=== PATIENT | male | born 1980 | race Caucasian/White ===

== ENCOUNTER 2023-04-09 09:10 | Outpatient (REF) | payer MEDICARE, MEDICAID, SELFPAY ==
[2023-04-09 11:33] LABS: MANUAL DIFF FLAG NO
[2023-04-09 11:36] LABS: Basophils Percent Auto 0.6 % (0-2); Eosinophils Absolute Auto 0.3 X10*3/uL (0.0-0.4); Eosinophils Percent Auto 4.5 % (0-4); Hematocrit 43.4 % (42.0-52.0); Hemoglobin 14.6 g/dl (14.0-18.0); Imm Gran Abs Auto 0.01 X10*3/uL (0.00-0.03); Imm Gran Pct Auto 0.1 % (0.0-0.4); Lymphocytes Absolute Auto 1.8 X10*3/uL (1.2-4.9); Mean Corpuscular HGB Conc 33.6 g/dl (31.0-36.0); Mean Corpuscular Hemoglobin 28.9 pg (27.0-33.0); Mean Corpuscular Volume 85.9 fL (80.0-98.0); Mean Platelet Volume 10.3 fL (9.4-12.4); Monocytes Absolute Auto 0.6 X10*3/uL (0.1-1.2); Monocytes Percent Auto 8.4 % (2-11); Neutrophils Absolute Auto 4.2 x10*3/uL (2.0-8.3); Neutrophils Percent Auto 60.4 % (45-73); Platelet Count 282 X10*3/uL (160-400); Red Blood Count 5.05 X10*6/uL (4.60-5.80); Red Cell Distribution Width 12.8 % (11.0-16.0); White Blood Count 6.9 X10*3/uL (4.8-10.8)
[2023-04-09 13:02] LABS: Alanine Aminotransferase 28 U/L (0-40); Albumin Level 4.6 g/dL (3.5-5.0); Alkaline Phosphatase 70 U/L (39-117); Anion Gap 12 (12-20); Aspartate Amino Transferase 22 U/L (5-37); Blood Urea Nitrogen 18 mg/dL (9-16); Calcium 9.9 mg/dL (8.4-10.2); Carbon Dioxide 27 mmol/L (22-29); Chloride 104 mmol/L (96-108); Cholesterol 239 mg/dL (<200); Estimated Glomerular Filt Rate 55; Glucose Random 110 mg/dL (60-115); HDL Cholesterol 58 mg/dL (>40); LDL Cholesterol Calculated 152 mg/dL (<100); Potassium 4.7 mmol/L (3.3-5.1); Sodium 138 mmol/L (135-145); Total Protein 8.2 g/dL (6.5-8.0); Triglycerides 147 mg/dL (<150)
== END 2023-04-09 09:11 | disposition home or self-care (01) ==
LOC: HO.HHCL 09:10
PROVIDERS: Visit Provider Internal Medicine Geriatric Medicine
DX: Z00.00 Encounter for general adult medical examination without abnormal findings (principal); N52.9 Male erectile dysfunction, unspecified; R79.89 Other specified abnormal findings of blood chemistry; F41.9 Anxiety disorder, unspecified
CPT/HCPCS: 36415; 80053; 80061; 85025

== ENCOUNTER 2023-10-23 10:25 | Outpatient (REF) | payer MEDICARE, MEDICAID, SELFPAY ==
[2023-10-23 12:29] LABS: Alanine Aminotransferase 37 U/L (0-40); Albumin Level 4.4 g/dL (3.5-5.0); Alkaline Phosphatase 52 U/L (39-117); Anion Gap 12 (12-20); Aspartate Amino Transferase 23 U/L (5-37); Bilirubin Total 0.9 mg/dL (0.0-1.0); Blood Urea Nitrogen 14 mg/dL (9-16); Calcium 9.7 mg/dL (8.4-10.2); Carbon Dioxide 26 mmol/L (22-29); Chloride 106 mmol/L (96-108); Cholesterol 172 mg/dL (<200); Estimated Glomerular Filt Rate > 60; Glucose Random 111 mg/dL (60-115); HDL Cholesterol 55 mg/dL (>40); LDL Cholesterol Calculated 98 mg/dL (<100); Potassium 4.5 mmol/L (3.3-5.1); Sodium 139 mmol/L (135-145); Total Protein 7.4 g/dL (6.5-8.0); Triglycerides 96 mg/dL (<150)
== END 2023-10-23 10:26 | disposition home or self-care (01) ==
LOC: HO.HHCL 10:25
PROVIDERS: Visit Provider Internal Medicine Geriatric Medicine
DX: I10 Essential (primary) hypertension (principal); Z79.899 Other long term (current) drug therapy
CPT/HCPCS: 36415; 80053; 80061

== ENCOUNTER 2024-03-12 10:30 | Outpatient (REF) | payer MEDICARE, MEDICAID, SELFPAY ==
--- NOTE | ~2024-03-12 | XR_ITS ---
EXAMINATION: XR CHEST CLINICAL INFORMATION: WEIGHT LOSS COMPARISON: None available. TECHNIQUE: 2 views of the chest were obtained. FINDINGS: The cardiac, hilar, and mediastinal contours are normal. The lungs are clear bilaterally. There is no pneumothorax or pleural effusion. There is no focal osseous or soft tissue abnormality. XR/XR chest 2V IMPRESSION: Normal chest. Electronically signed by: Ricardo Reynolds MD 03/12/2024 11:21 AM [facility]
[2024-03-12 11:38] LABS: MANUAL DIFF FLAG NO
[2024-03-12 11:45] LABS: Basophils Percent Auto 0.4 % (0-2); Eosinophils Absolute Auto 0.2 X10*3/uL (0.0-0.4); Eosinophils Percent Auto 3.2 % (0-4); Hematocrit 38.7 % (42.0-52.0); Hemoglobin 12.7 g/dl (14.0-18.0); Imm Gran Abs Auto 0.01 X10*3/uL (0.00-0.03); Imm Gran Pct Auto 0.2 % (0.0-0.4); Lymphocytes Absolute Auto 1.5 X10*3/uL (1.2-4.9); Mean Corpuscular HGB Conc 32.8 g/dl (31.0-36.0); Mean Corpuscular Hemoglobin 27.2 pg (27.0-33.0); Mean Corpuscular Volume 82.9 fL (80.0-98.0); Monocytes Absolute Auto 0.5 X10*3/uL (0.1-1.2); Neutrophils Absolute Auto 2.4 x10*3/uL (2.0-8.3); Neutrophils Percent Auto 52.2 % (45-73); Platelet Count 272 X10*3/uL (160-400); Red Blood Count 4.67 X10*6/uL (4.60-5.80); Red Cell Distribution Width 11.7 % (11.0-16.0); White Blood Count 4.6 X10*3/uL (4.8-10.8)
[2024-03-12 12:11] LABS: Alanine Aminotransferase 70 U/L (0-40); Albumin Level 4.2 g/dL (3.5-5.0); Alkaline Phosphatase 83 U/L (39-117); Anion Gap 10 (12-20); Aspartate Amino Transferase 39 U/L (5-37); Bilirubin Direct 0.3 mg/dL (0.0-0.5); Bilirubin Total 0.8 mg/dL (0.0-1.0); Blood Urea Nitrogen 11 mg/dL (9-16); Calcium 9.9 mg/dL (8.4-10.2); Carbon Dioxide 25 mmol/L (22-29); Chloride 105 mmol/L (96-108); Estimated Glomerular Filt Rate > 60; Glucose Random 109 mg/dL (60-115); Potassium 4.2 mmol/L (3.3-5.1); Sodium 136 mmol/L (135-145); Total Protein 7.7 g/dL (6.5-8.0)
[2024-03-12 12:29] LABS: TSH reflex Free T4 < 0.01 uIU/mL (0.32-4.0)
--- OUTSIDE RECORDS SUMMARY | 2024-03-12 12:36 | XMS_ITS | Clinical Summary ---
Author Organization [employer] Address [address] [place] [address] 7[address] [place] [address] Care Team Providers Care Executive Vp Name Role Phone Name, Ko CRAWFORD Primary Care Provider [phone] Allergies No known active allergies Medications fluticasone (Flonase) 50 MCG/ACT nasal spray SPRAY 2 SPRAYS INTO EACH NOSTRIL IN THE MORNING SHAKE GENTLY/PRIME BEFORE 1ST USE&CLEAN TIP/REPLACE CAP 48 mL 4 Active losartan (Cozaar) 50 MG tablet Take 1 tablet (50 mg) by mouth Once per day. 90 tablet 3 4 10/18/19 25 Active amLODIPine (Norvasc) 5 MG tablet Take 1 tablet (5 mg) by mouth Once per day. 90 tablet 3 4 10/18/19 25 Active rosuvastatin (Crestor) 20 MG tablet Take 1 tablet (20 mg) by mouth Once per day. 30 tablet 11 4 10/18/19 25 Active cetirizine (ZyrTEC) 10 MG tablet Take 1 tablet (10 mg) by mouth Once per day. 30 tablet 2 4 04/23/19 25 Active Viagra 100 MG tabletIndication s:Erectile dysfunction, unspecified erectile dysfunction type TAKE 1 TABLET 1 HOUR BEFORE SEXUAL RELATIONS ONCE DAILY NEEDED. 10 tablet 4 Active Active Problems Problem Noted Date Diagnosed Date Unexplained weight loss 03/12/2024 Assessment & Plan (03/12/2024 12:27 PM EST): Pt has had ~6lbs of weight loss since 10/2023. 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 curative right orchiectomy with Dr Kane brady in 2011 Hypercholesterolemia 04/29/2015 Herpes simplex 04/15/2009 Allergic rhinitis 06/21/2007 Migraine with aura 12/06/2006 Overview (03/27/2022): IMO update Encounters Date Type Department Care Team Description 03/12/2024 9:30 AM EST Office Visit [address] [address] Lynn Capellan CNP Unexplained weight loss (Primary Dx) 02/15/[address] [address] Otilia Briscoe [place] feb recalls 01/31/[address] [address] Ko Eagle MD 01/23/2024 10:45 AM EST Office Visit [address] [address] Ko Eagle MD Essential hypertension (Primary Dx); Hypercholesterolemia; Malignant neoplasm of testicle, unspecified laterality, unspecified whether descended or undescended (CMS/HCC); Erectile dysfunction, unspecified erectile dysfunction type; Encounter for immunization 01/21/[address] [address] Cecily Gómez MA Chart Prep 01/13/[address] [address] Ko Eagle MD Other hyperlipidemia from Last 3 Months Immunizations Name Administration Dates Next Due Influenza injectable quadriv alent IIV4 with preservative 03/05/2019,12/06/2016,11/03/2015 Influenza injectable quadriv alent preservative free 03/30/2023,12/12/2021,12/21/2020,2018 Influenza, IIV3, injectable 01/31/2013, 1,01/13/2009 Influenza, seasonal, injecta ble, preservative free 01/23/2024 TD (adult), 2 Lf tetanus tox oid, preservative free, adsorbed 10/19/2017 Tdap 06/13/2006 Social History Tobacco Use Types Packs/Day Years Used Date Smoking Tobacco: Never Smokeless Tobacco: Never Tobacco Cessation:Counseling Given: Not Answered Alcohol Use Standard Drinks/Week Comments Yes 0 (1 standard drink = 0.6 oz pur e alcohol) social Depression Answer Date Recorded Patient Health Questionnaire-9 Score 0 03/30/2023 Patient Health Questionnaire-9 Score 0 03/30/2023 Last PHQ-9: Questionnaire Data Not on file 0 03/30/2023 Housing Stability Answer Date Recorded What is your housing situation today? I have marj bianchi 03/22/[address] you li ve. Do you have problems with any of the following? None of the above 03/22/2023 Food Insecurity Answer Date Recorded Within the past 12 months, y ou worried that your food would run out before you got money to buy more: Never True 03/22/2023 Within the past 12 months,th e food you bought just didn't last and you didn't have enough money to get more: Never True 09/2023 Transportation Answer Date Recorded In the past 12 months, has l ack of transportation kept you from medical appts, meetings, work or from getting things needed for daily living? No 03/22/2023 Utilities Answer Date Recorded In the past 12 months, has t he electric, gas, oil or water company threatened to shut off services in your home? No 03/22/2023 Depression Answer Date Recorded Patient Health Questionnaire-2 Score 0 03/30/2023 Sex and Gender Information Value Date Recorded Sex Assigned at Male 12/12/2021 10:15 AM EDT Legal Sex Male 10:15 AM EDT Gender Identity Male 12/12/2021 10:15 AM EDT Sexual Orientation Straight 12/12/2021 10 :15 AM EDT Last Filed Vital Signs Vital Sign Reading Time Taken Comments Blood Pressure 138/87 03/12/2024 10:26 AM EST Pulse 96 03/12/2024 9:29 AM EST Temperature 36.6 ??C (97.9 ??F) 03/12/2024 9:29 AM ES T Respiratory Rate 20 03/12/2024 9:29 AM EST Oxygen Saturation 95% 03/12/2024 9:29 AM EST Inhaled Oxygen Concentration - - Weight 84.4 kg (186 lb) 03/12/2024 9:29 AM EST Height 175.3 cm (5' 9 ) 03/12/2024 9:29 AM EST Body Mass Index 27.47 03/12/2024 9:29 AM EST Plan of Treatment Upcoming Encounters Date Type Department Care Team (Late st Contact Info) Description 04/28/2024 10:15 AM EDT Office Visit [facility] MEDICINE [address] [place] [address] Name, MD Ko [address] [place] [address] Health Maintenance Due Date Last Done Comments CT Colonography 1978 Colonoscopy 1978 Colorectal Cancer Screening 1978 FIT DNA/Cologuard 1978 FIT 1978 FOBT 1978 HIV Screening 1978 Sigmoidoscopy 1978 Family Planning (PISQ) 1993 Hepatitis C Screening 01/10/1996 Hepatitis B Vaccines (1 of 3 - 19+ 3-dose series) 1997 COVID-19 Vaccine ( season) 2023 03/23/2021, 10/06/2020, 09/15/2020 SDOH Screening 03/22/2024 03/22/2023 Depression Screening 03/30/2024 03/30/2023, 03/30/19 24 Alcohol/Substance Use Screening 01/22/2025 01/23/2024 Tobacco Screening 03/12/2025 03/12/2024 DTaP/Tdap/Td Vaccines (3 - Td or Tdap) 10/20/2027 10/19/2017, 06/13/2006 Zoster Vaccines (1 of 2) 01/10/2028 Lipid Panel 10/22/2028 10/23/2023, 03/16, 03/28/2022, Additional history exists RSV Patients and Patients Aged 60 years or older (1 - 1-dose 75+ series) 2053 Influenza Vaccine Completed 01/23/2024, , 12/12/2021, Additional history exists HIB Vaccines Aged Out No longer eligi ble based on patient's age to complete this topic HPV Vaccines Aged Out No longer eligi ble based on patient's age to complete this topic Hepatitis A Vaccines Aged Out No long er eligible based on patient's age to complete this topic IPV Vaccines Aged Out No longer eligi ble based on patient's age to complete this topic Meningococcal Vaccine Aged Out No sydni vivien eligible based on patient's age to complete this topic Pneumococcal Vaccine: Pediatrics (0 to 5 Years) and At-Risk Patients (6 to 49) Years) Aged Out No longer eligible based on patient's age to complete this topic RSV under 20 months Aged Out No longe r eligible based on patient's age to complete this topic Rotavirus Vaccines Aged Out No longer eligible based on patient's age to complete this topic Procedures Procedure Name Priority Date/Time Associated Diagnosis Comments XR CHEST 2 VIEWS Routine 03/12/2024 10:5 4 AM EST Unexplained weight loss TSH W/REFLEX TO FT4 Routine 03/12/2024 1 0:33 AM EST Unexplained weight loss HEPATIC FUNCTION PANEL Routine 10:33 AM EST Unexplained weight loss COMPREHENSIVE METABOLIC PANEL Routine 03/12/2024 10:33 AM EST Unexplained weight loss CBC WITH AUTO DIFFERENTIAL Routine 03/12/2024 10:33 AM EST Unexplained weight loss LIPID PANEL, STANDARD Routine 10/23/2023 10:34 AM EDT On statin therapy from Last 3 Months or Most Recently Relevant to Health Maintenance Results * XR Chest 2 Views (03/12/2024 10:54 AM EST) Anatomical Region Laterality Modality Chest Radiographic Sakshi ging 03/12/2024 10:5 4 AM EST Narrative 03/12/2024 11:23 AM EST ? [facility] ?[address] ?[place] [address] ?XRay Report ? Signed ? Patient: Esteras,Beniot A ?MR#: [id number] ?? [id number] ? : 1980 ?Acct:[id number] ? Age/Sex: 44 / M ?ADM Date: 03/12/24 ? Loc: HO.HHCL ? Attending Dr: Lynn Capellan CARD BRUSHER ? Ordering Physician: Lynn Capellan ?? Date of Service: 03/12/24 ?? Procedure(s): XR chest 2V ?? Accession Number(s): [id number] ? cc: Lynn Capellan ? EXAMINATION: ?? XR CHEST ? CLINICAL INFORMATION: ?? WEIGHT LOSS ? COMPARISON: ?? None available. ? TECHNIQUE: ?? 2 views of the chest were obtained. ? FINDINGS: ?? The cardiac, hilar, and mediastinal contours are normal. ? The lungs are clear bilaterally. There is no pneumothorax or pleural ?? effusion. ? There is no focal osseous or soft tissue abnormality. ? XR/XR chest 2V ?? IMPRESSION: ?? Normal chest. ? Electronically signed by: ??Ricardo Reynolds MD ??03/12/2024 11:21 AM EST RP ? Dictated By: ?Ricardo Reynolds MD ? Signed By: ?<Electronically signed by Ricardo Reynolds MD in OV> ?03/12/24 1121 ? DD/ 1054 ? TD/TT: 03/12/24 1102 ? Glue Bone Crusher: ? Procedure Note Ab Amador - 03/12/[address] [address] XRay Report Signed Patient: Benito Reveles AMR#: [id number] : 1980Acct:[id number] Age/Sex: 44 / MADM Date: 03/12/24 Loc: HO.HHCL Attending Dr: Lynn Capellan CARD BRUSHER Ordering Physician: Lynn Capellan Date of Service: 03/12/24 Procedure(s): XR chest 2V Accession Number(s): [id number] cc: Lynn Capellan EXAMINATION: XR CHEST CLINICAL INFORMATION: WEIGHT LOSS COMPARISON: None available. TECHNIQUE: 2 views of the chest were obtained. FINDINGS: The cardiac, hilar, and mediastinal contours are normal. The lungs are clear bilaterally. There is no pneumothorax or pleural effusion. There is no focal osseous or soft tissue abnormality. XR/XR chest 2V IMPRESSION: Normal chest. Electronically signed by: Ricardo Reynolds MD 03/12/2024 11:21 AM EST Dictated By: Ricardo Reynolds MD Signed By: <Electronically signed by Ricardo Reynolds MD in OV> 03/12/24 1121 DD/ 1054 TD/TT: 03/12/24 1102 Glue Bone Crusher: [facility] HOCKEY PLAYER IMG XR PROCEDURES Edited Result - Final * (ABNORMAL) TSH W/Reflex to FT4 (03/12/2024 10:33 AM EST) Pathologist [facility] TSH reflex Free T4 <0.01(L) 0.32 - 4.0 uIU/mL [facility] Blood Venous blood specimen / Unknown 03/12/2024 10:33 AM EST 03/12/2024 11:35 AM EST [facility] LAB BLOOD ORDERABLES Saadia l Result [facility] [address] [place] [phone] [phone] * (ABNORMAL) CBC auto differential (03/12/2024 10:33 AM EST) White Blood Count 4.6(L) 4.8 - 10.8 X10*3/uL [facility] Red Blood Count 4.67 4.60 - 5.80 X10*6/uL [facility] Hemoglobin 12.7(L) 14.0 - 18.0 g/dl [facility] Hematocrit 38.7(L) 42.0 - 52.0 % [facility] Mean Corpuscular Volume 82.9 80.0 - 98.0 fL [facility] Mean Corpuscular Hemoglobin 27.2 27.0 - 33.0 pg [facility] Mean Corpuscular HGB Conc 32.8 31.0 - 36.0 g/dl [facility] Red Cell Distribution Width 11.7 11.0 - 16.0 % [facility] Platelet Count 272 160 - 400 X10*3/uL [facility] Mean Platelet Volume 10.0 9.4 - 12.4 fL [facility] Neutrophils Percent Auto 52.2 45 - 73 % [facility] Imm Gran Pct Auto 0.2 0.0 - 0.4 % [facility] Lymphocytes Percent Auto 33.0 20 - 40 % [facility] Monocytes Percent Auto 11.0 2 - 11 % [facility] Eosinophils Percent Auto 3.2 0 - 4 % [facility] Basophils Percent Auto 0.4 0 - 2 % [facility] NRBC Pct Auto 0.0 0.0 - 0.2 /100WBC [facility] Neutrophils Absolute Auto 2.4 2.0 - 8.3 x10*3/uL [facility] Imm Gran Abs Auto 0.01 0.00 - 0.03 X10*3/uL [facility] Lymphocytes Absolute Auto 1.5 1.2 - 4.9 X10*3/uL [facility] Monocytes Absolute Auto 0.5 0.1 - 1.2 X10*3/uL [facility] Eosinophils Absolute Auto 0.2 0.0 - 0.4 X10*3/uL [facility] Basophils Absolute Auto 0.0 0.0 - 0.2 X10*3/uL [facility] NRBC Abs Auto 0.000 0.0 - 0.012 X10*3/uL [facility] Blood Venous blood specimen / Unknown 03/12/2024 10:33 AM EST 03/12/2024 11:35 AM EST [facility] LAB BLOOD ORDERABLES Saadia l Result Performing Organization Address City/[facility]/ZIP Co de Phone Number [facility] [address] [place] [phone] * Hepatic Function Panel (03/12/2024 10:33 AM EST) Bilirubin, Direct 0.3 0.0 - 0.5 mg/dL [facility] Blood Venous blood specimen / Unknown 03/12/2024 10:33 AM EST 03/12/2024 11:35 AM EST [facility] LAB BLOOD ORDERABLES Saadia l Result Performing Organization Address [facility] Co de Phone Number [facility] [address] [place] [phone] * (ABNORMAL) Comprehensive Metabolic Panel (03/12/2024 10:33 AM EST) Sodium 136 135 - 145 mmol/L [facility] Potassium 4.2 3.3 - 5.1 mmol/L [facility] Chloride 105 96 - 108 mmol/L [facility] Carbon Dioxide 25 22 - 29 mmol/L [facility] Anion Gap 10(L) 12 - 20 [facility] Urea Nitrogen (BUN) 11 9 - 16 mg/dL [facility] Creatinine, Serum 0.89 0.5 - 1.4 mg/dL [facility] Estimated Glomerular Filt Rate >60 [facility] Comment:Chronic Kidney Disea se: Estimated GFR < 60 mL/min/[id number] Kidney Disease: Estimated GFR < 15 mL/min/1.73m2 Glucose 109 60 - 115 mg/dL [facility] Calcium 9.9 8.4 - 10.2 mg/dL [facility] Bilirubin, Total 0.8 0.0 - 1.0 mg/dL [facility] Aspartate Amino Transferase 39(H) 5 - 37 U/L [facility] Alanine Aminotransferase 70(H) 0 - 40 U/L [facility] Total Protein 7.7 6.5 - 8.0 g/dL [facility] Albumin Level 4.2 3.5 - 5.0 g/dL [facility] Alkaline Phosphatase 83 39 - 117 U/L [facility] Blood Venous blood specimen / Unknown 03/12/2024 10:33 AM EST 03/12/2024 11:35 AM EST Lynn Capellan [facility] LAB BLOOD ORDERABLES Saadia l Result [facility] [address] [place] [phone] * Lipid Panel, Standard (10/23/2023 10:34 AM EDT) Triglycerides 96 <150 mg/dL [facility] Comment:Desirable Triglyceri de: less than 150 mg/dLBorderline High Triglyceride 150-199 mg/dLHigh Triglyceride: 200-499 mg/dLVery High Triglyceride: greater than or equal to 5OO mg/dL Cholesterol 172 <200 mg/dL [facility] Comment:Desirable Cholestero l: less than 200 mg/dLBorderline High Cholesterol: 200-239 mg/dLHigh Cholesterol: greater than 239 mg/dL LDL Cholesterol Calculated 98 <100 mg/dL [facility] Comment:Desirable LDL: less than 100 mg/dLNear Optimal/Above Optimal LDL: 110- 129 mg/dLBorderline High LDL: 130-159 mg/dLHigh LDL: 160-189 mg/dLVery High LDL: greater than or equal to 190 mg/dL HDL Cholesterol 55 >40 mg/dL [facility] Comment:Desirable HDL: great er than 40 mg/dL Note: This HDL assay may give artificially low results in patients with liver disease. Blood Venous blood specimen / Unknown 10/23/2023 10:34 AM EDT 10/23/2023 11:09 AM EDT Ko Eagle MD LAB BLOOD ORDERABLES Final Resul t [facility] [address] [place] [phone] from Last 3 Months or Most Recently Relevant to Health Maintenance Insurance [facility] STANDARD MEDICARE Care Teams Executive Vp Relationship Specialty Start Date End Date Name, MD Ko [address] [place] [address] PCP - General Family Medicine 04/08/15
--- OUTSIDE RECORDS SUMMARY | 2024-03-12 12:36 | XMS_ITS | Encounter Summary ---
Author Organization [employer] Address [address] [facility] 7t [place] [address] Care Team Providers Care Client Care Representative Name Role Phone Name, Ko CRAWFORD Primary Care Provider [phone] Reason for Visit * Reason Comments Med Refill Encounter Details Date Type Department Care Team ([facility] st Contact Info) Description 01/13/2024 Refill [facility] MEDICINE [address] [place], [place] [phone] Name, MD Ko [address] [place] [address] Other hyperlipidemia Social History Tobacco Use Types Packs/Day Years Used Date Smoking Tobacco: Never Smokeless Tobacco: Never Alcohol Use Standard Drinks/Week Comments Yes 0 [...] Orientation Straight 12/12/2021 10 :15 AM EDT documented as of this encounter Plan of Treatment Upcoming Encounters Date Type Department Care Team (Late st Contact Info) Description 04/28/2024 10:15 AM EDT Office Visit [facility] MEDICINE [address] [place] [phone] NameKo MD [address] [place] [address] documented as of this encounter Visit Diagnoses Diagnosis Other hyperlipidemia documented in this encounter Additional Health Concerns Assessment Noted Time PHQ-9 Depression Total Score: 0 03/30/19 24 10:46 AM EST documented as of this encounter Care Teams Client Care Representative Relationship Specialty Start Date End Date Name, MD Ko [address] [place] [phone] PCP - General Family Medicine 04/08/15 documented as of this encounter
--- OUTSIDE RECORDS SUMMARY | 2024-03-12 12:36 | XMS_ITS | Encounter Summary ---
Author Organization [employer] Address [address] [facility] 7t [place] [address] Care Team Providers Care Front End Software Developer Name Role Phone Name, Ko CRAWFORD Primary Care Provider [phone] Reason for Visit * Reason Onset Date Comments mar recalls 02/15/2024 Encounter Details Date Type Department Care Team (Late st Contact Info) Description 02/15/2024 Telephone [facility] MEDICINE [address] [place] [address] Otilia Briscoe [place] mar recalls Social History Tobacco Use Types Packs/Day Years [...] AM EDT documented as of this encounter Miscellaneous Notes * Telephone Encounter - Otilia Briscoe [place] - 02/15/2024 2:02 PM EST T/C placed to pt. Scheduled recall. Pt agrees with plan. Reminder letter sent . documented in this encounter Plan of Treatment Upcoming Encounters Date Type Department Care Team (Late st Contact Info) Description 04/28/2024 10:15 AM EDT Office Visit [facility] MEDICINE [address] [place] [address] Name, MD Ko [address] [place] [address] documented as of this encounter Visit Diagnoses Not on filedocumented in this encounter Additional Health Concerns Assessment Noted Time PHQ-9 Depression Total Score: 0 03/30/19 24 10:46 AM EST documented as of this encounter Care Teams Front End Software Developer Relationship Specialty Start Date End Date Name, MD Ko [address] [place] [phone] PCP - General Family Medicine 04/08/15 documented as of this encounter
--- OUTSIDE RECORDS SUMMARY | 2024-03-12 12:36 | XMS_ITS | Encounter Summary ---
Author Organization [employer] Address [address] [facility] [address] [place] [address] Care Team Providers Care Detention Sergeant Name Role Phone Name, Ko CRAWFORD Primary Care Provider [phone] Encounter Details Date Type Department Care Team (Late st Contact Info) Description 03/12/2024 9:30 AM EST Office Visit [facility] MEDICINE [address] [place], [place] [phone] Lynn Capellan CNP [address] [place], [place] [phone] Unexplained weight loss (Primary Dx) Social History Tobacco Use Types Packs/Day Years [...] AM EDT documented as of this encounter Last Filed Vital Signs Vital Sign Reading [...] Mass Index 27.47 03/12/2024 9:29 AM EST documented in this encounter Miscellaneous Notes * Assessment & Plan Note - Lynn Capellan CNP - 03/12/2024 12:27 PM EST Associated Problem(s): Unexplained weight loss Pt has had ~6lbs of weight loss since 10/2023. Will obtain bloodwork-see orders Will obtain Chest XR to r/o malignancy, Tb Pt will f/u with PCP in april Will call pt in for sooner f/u if labs/imaging abnormal documented in this encounter Plan of Treatment Upcoming Encounters Date Type Department Care Team (Late st Contact Info) Description 04/28/2024 10:15 AM EDT Office Visit [facility] MEDICINE [address] [place] [address] Name, MD Ko [address] [place] [address] Scheduled Orders Name Type Priority Associated Diagnoses Orde r Schedule HIV-1/2 Antigen and Antibodies, Fourth Generation, with Reflexes Lab Routine Unexplained weight loss Expected: 03/12/2024 (Approximate), Expires: 03/12/2025 Hepatitis C Antibody with Reflex to HCV, RNA, Quantitative, Real-Time PCR Lab Routine Unexplained weight loss Expected: 03/12/2024, Expires: 03/12/2025 documented as of this encounter Procedures Procedure Name Priority Date/Time Associated Diagnosis Comments XR CHEST 2 VIEWS Routine 03/12/2024 10:5 4 AM EST Unexplained weight loss TSH W/REFLEX TO FT4 Routine 03/12/2024 1 0:33 AM EST Unexplained weight loss CBC WITH AUTO DIFFERENTIAL Routine 03/12/2024 10:33 AM EST Unexplained weight loss HEPATIC FUNCTION PANEL Routine 10:33 AM EST Unexplained weight loss COMPREHENSIVE METABOLIC PANEL Routine 03/12/2024 10:33 AM EST Unexplained weight loss documented in this encounter Results * XR Chest 2 Views (03/12/2024 10:54 AM EST) Anatomical Region Laterality Modality Chest Radiographic Sakshi ging 03/12/2024 10:5 4 AM EST Narrative 03/12/2024 11:23 AM EST ? [facility] ?[address] ?[place] [address] ?XRay Report ? Signed ? Patient: Esteras,Benito A ?MR#: [id number] ?? [id number] ? : 1980 ?Acct:[id number] ? Age/Sex: 44 / M ?ADM Date: 01/29/25 ? Loc: HO.HHCL ? Attending Dr: Lynn Capellan CORE FEEDER ? Ordering Physician: Lynn Capellan ?? Date of Service: 03/12/24 ?? Procedure(s): XR chest 2V ?? Accession Number(s): [id number] ? cc: Lynn Capellan ? EXAMINATION: ?? [...] DD/ 1054 ? TD/TT: 03/12/24 1102 ? [facility]: ? Procedure Note Donotyulissainterpreter, Image - 03/12/2024 [place] [address] XRay Report Signed Patient: Benito Reveles AMR#: [id number] : 1980Acct:[id number] Age/Sex: 44 / MADM Date: 03/12/24 Loc: [facility] Attending Dr: Lynn Capellan CORE FEEDER Ordering Physician: Lynn Capellan Date of Service: 03/12/24 Procedure(s): XR chest 2V Accession Number(s): [id number] cc: Lynn Capellan EXAMINATION: XR CHEST CLINICAL [...] 03/12/24 1121 DD/ 1054 TD/TT: 03/12/24 1102 [facility]: [facility] TRAVEL PTA IMG XR PROCEDURES Edited Result - Final * (ABNORMAL) TSH W/Reflex to FT4 (03/12/2024 10:33 AM EST) TSH reflex Free T4 <0.01(L) 0.32 - 4.0 uIU/mL [facility] Blood Venous blood specimen / Unknown 03/12/2024 10:33 AM EST 03/12/2024 11:35 AM EST [facility] LAB BLOOD ORDERABLES Saadia l Result Performing Organization Address City/[facility]/ZIP Co de Phone Number [facility] [address] [place] [phone] * Hepatic Function Panel (03/12/2024 10:33 AM EST) Pathologist [facility] Bilirubin, Direct 0.3 0.0 - 0.5 mg/dL [facility] Blood Venous blood specimen / Unknown 03/12/2024 10:33 AM EST 03/12/2024 11:35 AM EST [facility] LAB BLOOD ORDERABLES Saadia l Result Performing Organization Address City/[facility]/ZIP Co de Phone Number [facility] [address] [place] [phone] * (ABNORMAL) Comprehensive Metabolic Panel (03/12/2024 10:33 AM EST) Pathologist [facility] Sodium 136 135 - 145 mmol/L [facility] Potassium 4.2 3.3 - 5.1 mmol/L [facility] Chloride 105 96 - 108 mmol/L [facility] Carbon Dioxide 25 22 - 29 mmol/L [facility] Anion Gap 10(L) 12 - 20 [facility] Urea Nitrogen (BUN) 11 9 - 16 mg/dL [facility] Creatinine, Serum 0.89 0.5 - 1.4 mg/dL [facility] Estimated Glomerular Filt Rate >60 [facility] Comment:Chronic Kidney Disea se: Estimated GFR < 60 mL/min/[id number] Kidney Disease: Estimated GFR < 15 mL/min/1.73m2 Glucose 109 60 - 115 mg/dL [facility] Calcium 9.9 8.4 - 10.2 mg/dL [facility] Bilirubin, Total 0.8 0.0 - 1.0 mg/dL [facility] Aspartate Amino Transferase 39(H) 5 - 37 U/L [facility] Alanine Aminotransferase 70(H) 0 - 40 U/L [facility] Total Protein 7.7 6.5 - 8.0 g/dL [facility] Albumin Level 4.2 3.5 - 5.0 g/dL [facility] Alkaline Phosphatase 83 39 - 117 U/L [facility] Blood Venous blood specimen / Unknown 03/12/2024 10:33 AM EST 03/12/2024 11:35 AM EST [facility] LAB BLOOD ORDERABLES Saadia l Result [facility] [address] [place] [phone] * (ABNORMAL) CBC auto differential (03/12/2024 10:33 AM EST) White Blood Count 4.6(L) 4.8 - 10.8 X10*3/uL [facility] Red Blood Count 4.67 4.60 - 5.80 X10*6/uL [facility] Hemoglobin 12.7(L) 14.0 - 18.0 g/dl [facility] Hematocrit 38.7(L) 42.0 - 52.0 % [facility] Mean Corpuscular Volume 82.9 80.0 - 98.0 fL [facility] Mean Corpuscular Hemoglobin 27.2 27.0 - 33.0 pg [facility] Mean Corpuscular HGB Conc 32.8 31.0 - 36.0 g/dl [facility] Red Cell Distribution Width 11.7 11.0 - 16.0 % [facility] Platelet Count 272 160 - 400 X10*3/uL [facility] Mean Platelet Volume 10.0 9.4 - 12.4 fL [facility] Neutrophils Percent Auto 52.2 45 - 73 % [facility] Imm Gran Pct Auto 0.2 0.0 - 0.4 % [facility] Lymphocytes Percent Auto 33.0 20 - 40 % [facility] Monocytes Percent Auto 11.0 2 - 11 % [facility] Eosinophils Percent Auto 3.2 0 - 4 % [facility] Basophils Percent Auto 0.4 0 - 2 % [facility] NRBC Pct Auto 0.0 0.0 - 0.2 /100WBC [facility] Neutrophils Absolute Auto 2.4 2.0 - 8.3 x10*3/uL [facility] Imm Gran Abs Auto 0.01 0.00 - 0.03 X10*3/uL [facility] Lymphocytes Absolute Auto 1.5 1.2 - 4.9 X10*3/uL [facility] Monocytes Absolute Auto 0.5 0.1 - 1.2 X10*3/uL [facility] Eosinophils Absolute Auto 0.2 0.0 - 0.4 X10*3/uL [facility] Basophils Absolute Auto 0.0 0.0 - 0.2 X10*3/uL [facility] NRBC Abs Auto 0.000 0.0 - 0.012 X10*3/uL [facility] Blood Venous blood specimen / Unknown 03/12/2024 10:33 AM EST 03/12/2024 11:35 AM EST Lynn Capellan [facility] LAB BLOOD ORDERABLES Saadia l Result [facility] [address] [place], [place] [phone] documented in this encounter Visit Diagnoses Diagnosis Unexplained weight loss- Primary Loss of weight documented in this encounter Additional Health Concerns Assessment Noted Time PHQ-9 Depression Total Score: 0 03/30/19 24 10:46 AM EST documented as of this encounter Care Teams Detention Sergeant Relationship Specialty Start Date End Date Name, MD Ko [address] [place] [phone] PCP - General Family Medicine 04/08/15 documented as of this encounter
[2024-03-12 12:40] LABS: HIV AB/AG Nonreactive (Nonreactive); HIV Num 1 0.05 S/CO (0.00-0.99); ~Hepatitis C Antibody Nonreactive (Nonreactive)
[2024-03-12 13:06] LABS: Free T4 (Free Thyroxine) 2.31 ng/dL (0.71-1.85)
== END 2024-03-12 10:31 | disposition home or self-care (01) ==
LOC: HO.HHCL 10:30
DX: R63.4 Abnormal weight loss (principal)
CPT/HCPCS: 36415; 71046; 80053; 82248; 84439; 84443; 85025; 86803; 87389

== ENCOUNTER → 2024-03-12 10:54 | Outpatient (BNV) | payer MEDICARE, MEDICAID, SELFPAY | PROVIDERS: Visit Provider Radiology Diagnostic Radiology | DX: R63.4 Abnormal weight loss (principal) | CPT/HCPCS: 71046 ==

== ENCOUNTER 2024-03-15 09:01 | Outpatient (REF) | payer MEDICARE, MEDICAID, SELFPAY ==
--- OUTSIDE RECORDS SUMMARY | 2024-03-15 09:05 | XMS_ITS | Encounter Summary ---
Author Organization [employer] Address [address] [facility] 7[address] [place] [address] Care Team Providers Care Software Engineer Mobile Name Role Phone Name, Ko CRAWFORD Primary Care Provider Reason for Visit * Reason Comments Med Refill Encounter Details Date Type Department Care Team ([facility] st Contact Info) Description 01/13/2024 Refill [facility] MEDICINE [address] [place], [place] [phone] Name, MD Ko [address] [place] [address] Other hyperlipidemia Social History Tobacco Use Types [...] Description 04/28/2024 10:15 AM EDT Office Visit [facility] MEDICINE [address] [place] [phone] NameKo MD [address] [place] [phone] documented as of this encounter Visit Diagnoses Diagnosis Other hyperlipidemia documented in this encounter Additional Health Concerns Assessment Noted Time PHQ-9 Depression Total Score: 0 03/30/19 24 10:46 AM EST documented as of this encounter Care Teams Software Engineer Mobile Relationship Specialty Start Date End Date Name, MD Ko [address] [place] [phone] PCP - General Family Medicine 04/08/15 documented as of this encounter
--- OUTSIDE RECORDS SUMMARY | 2024-03-15 09:05 | XMS_ITS | Encounter Summary ---
Author Organization [employer] Address [address] [facility] [address] [place] [address] Care Team Providers Care Motors Assembler Name Role Phone Name, Ko CRAWFORD Primary Care Provider [phone] Reason for Referral * Consultation (Routine) - Canceled Specialty Diagnoses / Procedures Referred By Cheryl hernandez Referred To Contact Endocrinology Diagnoses Hypothyroidism, unspecified type Lynn Capellan CNP [address] [place] [address] Phone: tel: fax: Referral ID Status Reason Start Date Expiration Date Visits Requested Visits Authorized [id number] Canceled Specialty Services Required 03/12/2024 03/12/2025 1 1 Encounter Details Date Type Department Care Team (Late st Contact Info) Description 03/12/2024 Orders Only [facility] MEDICINE [address] [place], [place] [phone] Lynn Capellan CNP [address] [place], [place] [phone] Hypothyroidism, unspecified type (Primary Dx) Social History Tobacco Use Types [...] Description 04/28/2024 10:15 AM EDT Office Visit [facility] MEDICINE [address] [place] [phone] Name, MD Ko [address] [place] [phone] Scheduled Orders Name Type Priority Associated Diagnoses Orde r Schedule T3, Total Lab Routine Hypothyroidism, unspecified type Expected: 03/12/2024 (Approximate), Expires: 03/12/2025 Thyroid Peroxidase Antibodies Lab Routine Hypothyroidism, unspecified type Expected: 03/12/2024 (Approximate), Expires: 03/12/2025 Thyroglobulin Antibodies Lab Routine Hypothyroidism, unspecified type Expected: 03/12/2024 (Approximate), Expires: 03/12/2025 Scheduled Referrals Name Type Priority Associated Diagnoses Order Schedule Referral to Endocrinology Outpatient Referral Routine Hypothyroidism, unspecified type Expected: 03/12/2024 (Approximate), Expires: 03/12/2025 documented as of this encounter Procedures Procedure Name Priority Date/Time Associated Diagnosis Comments T4, FREE Routine 03/12/2024 10:33 AM EST Hypothyroidism, unspecified type documented in this encounter Results * (ABNORMAL) T4, Free (03/12/2024 10:33 AM EST) Free T4 (Free Thyroxine) 2.31(H) 0.71 - 1.85 ng/dL [facility] 03/12/2024 10:3 3 AM EST 03/12/2024 11:35 AM EST [facility] LAB BLOOD ORDERABLES Asadia l Result [facility] [address] [place] [phone] documented in this encounter Visit Diagnoses Diagnosis Hypothyroidism, unspecified type- Primary documented in this encounter Additional Health Concerns Assessment Noted Time PHQ-9 Depression Total Score: 0 03/30/19 24 10:46 AM EST documented as of this encounter Care Teams Motors Assembler Relationship Specialty Start Date End Date Name, MD Ko [address] [place] [address] PCP - General Family Medicine 04/08/15 documented as of this encounter
--- OUTSIDE RECORDS SUMMARY | 2024-03-15 09:05 | XMS_ITS | Clinical Summary ---
Author Organization [employer] Address [address] [place] [address] 7[address] [place] [address] Care Team Providers Care Obstetrics And Gynecology Professor Name Role Phone Name, Ko CRAWFORD Primary Care Provider [phone] Allergies No known active allergies Medications fluticasone [...] Encounters Date Type Department Care Team Description 03/14/[address] [address] Lynn Capellan CNP 03/12/2024 9:30 AM EST Office Visit [address] [address] Lynn Capellan CNP Unexplained weight loss (Primary Dx) 03/12/2024 Orders Only [address] [address] Lynn Capellan CNP Hypothyroidism, unspecified type (Primary Dx) 02/15/[address] [address] Otilia Briscoe [place] feb recalls 01/31/[address] [address] NameKo MD 01/23/2024 10:45 AM EST Office Visit [address] [address] Ko Eagle MD Essential hypertension (Primary Dx); Hypercholesterolemia; Malignant neoplasm of testicle, unspecified laterality, unspecified whether descended or undescended (CMS/HCC); Erectile dysfunction, unspecified erectile dysfunction type; Encounter for immunization 01/21/2024 Telephone [place] [address] [place] [address] Cecily Gómez [place] Chart Prep 01/13/2024 Refill [facility] MEDICINE [address] [place] [address] Name, MD Ko Other hyperlipidemia from Last 3 Months Immunizations [...] Description 04/28/2024 10:15 AM EDT Office Visit [facility] MEDICINE [address] [place] [address] Name, MD Ko [address] [place] [address] Health Maintenance Due Date Last Done Comments CT Colonography 1978 Colonoscopy 1978 Colorectal Cancer Screening 1978 FIT DNA/Cologuard 1978 FIT 1978 FOBT 1978 Sigmoidoscopy 1978 Family Planning (PISQ) 1993 Hepatitis B Vaccines (1 of 3 - [...] Completed 01/23/2024, , 12/12/2021, Additional history exists HIV Screening Completed 03/12/2024 Hepatitis C Screening Completed 03/12/2024 HIB Vaccines Aged Out No longer eligi [...] 10:5 4 AM EST Unexplained weight loss T4, FREE Routine 03/12/2024 10:33 AM EST Hypothyroidism, unspecified type TSH W/REFLEX TO FT4 Routine 03/12/2024 1 0:33 AM EST Unexplained weight loss HEPATIC FUNCTION PANEL Routine 10:33 AM EST Unexplained weight loss COMPREHENSIVE METABOLIC PANEL Routine 03/12/2024 10:33 AM EST Unexplained weight loss HEPATITIS C AB W/REFL TO HCV RNA, QN, PCR Routine 03/12/2024 10:33 AM EST Unexplained weight loss HIV 1/2 ANTIGEN/ANTIBODY, FOURTH GENERATION W/RFL Routine 03/12/2024 10:33 AM EST Unexplained weight [...] EST Narrative 03/12/2024 11:23 AM EST ? [facility] ?[address] ?[place] [address] ?XRay Report ? Signed ? Patient: Benito Reveles ?MR#: [id number] ?? [id number] ? : 1980 ?Acct:[id number] ? Age/Sex: 44 / M ?ADM Date: 03/12/24 ? Loc: HO.[facility]CL ? Attending Dr: Lynn Capellan METAL BUGGY OPERATOR ? Ordering Physician: Lynn Capellan ?? Date of Service: 03/12/24 ?? Procedure(s): XR chest 2V ?? Accession Number(s): [id number] ? cc: Capellan,Alexxis ? EXAMINATION: ?? XR CHEST ? CLINICAL [...] DD/ 1054 ? TD/TT: 03/12/24 1102 ? Lean Six Sigma Black Belt: ? Procedure Note Doncarlineter, Image - 03/12/[address] [address] XRay Report Signed Patient: Benito Reveles AMR#: [id number] : 1980Acct:[id number] Age/Sex: 44 / MADM Date: 03/12/24 Loc: [facility] Attending Dr: Lynn Capellan METAL BUGGY OPERATOR Ordering Physician: Lynn Capellan Date of Service: 03/12/24 Procedure(s): XR chest 2V Accession Number(s): [id number] cc: Lynn Capellan EXAMINATION: XR CHEST CLINICAL [...] 03/12/24 1121 DD/ 1054 TD/TT: 03/12/24 1102 Lean Six Sigma Black Belt: Lynn Capellan [facility] IMG XR PROCEDURES Edited Result - Final * (ABNORMAL) TSH W/Reflex to FT4 (03/12/2024 10:33 AM EST) TSH reflex Free T4 <0.01(L) 0.32 - 4.0 uIU/mL [facility] Blood Venous blood specimen / Unknown 03/12/2024 10:33 AM EST 03/12/2024 11:35 AM EST Lynn Capellan REHABILITATION SERVICES COORDINATOR LAB BLOOD ORDERABLES Saadia l Result [facility] [address] [place], [place] [phone] * (ABNORMAL) CBC auto differential (03/12/2024 10:33 AM EST) White Blood Count 4.6(L) 4.8 - 10.8 X10*3/uL [facility] Red Blood Count 4.67 4.60 - 5.80 X10*6/uL [facility] Hemoglobin 12.7(L) 14.0 - 18.0 g/dl [facility] Hematocrit 38.7(L) 42.0 - 52.0 % [facility] Mean Corpuscular Volume 82.9 80.0 - 98.0 fL [facility] Mean Corpuscular Hemoglobin 27.2 27.0 - 33.0 pg [facility] Mean Corpuscular HGB Conc 32.8 31.0 - 36.0 g/dl [facility] Red Cell Distribution Width 11.7 11.0 - 16.0 % [facility] Platelet Count 272 160 - 400 X10*3/uL [facility] Mean Platelet Volume 10.0 9.4 - 12.4 fL [facility] Neutrophils Percent Auto 52.2 45 - 73 % [facility] Imm Gran Pct Auto 0.2 0.0 - 0.4 % [facility] Lymphocytes Percent Auto 33.0 20 - 40 % [facility] Monocytes Percent Auto 11.0 2 - 11 % [facility] Eosinophils Percent Auto 3.2 0 - 4 % [facility] Basophils Percent Auto 0.4 0 - 2 % [facility] NRBC Pct Auto 0.0 0.0 - 0.2 /100WBC [facility] Neutrophils Absolute Auto 2.4 2.0 - 8.3 x10*3/uL [facility] Imm Gran Abs Auto 0.01 0.00 - 0.03 X10*3/uL [facility] Lymphocytes Absolute Auto 1.5 1.2 - 4.9 X10*3/uL [facility] Monocytes Absolute Auto 0.5 0.1 - 1.2 X10*3/uL [facility] Eosinophils Absolute Auto 0.2 0.0 - 0.4 X10*3/uL [facility] Basophils Absolute Auto 0.0 0.0 - 0.2 X10*3/uL [facility] NRBC Abs Auto 0.000 0.0 - 0.012 X10*3/uL [facility] Blood Venous blood specimen / Unknown 03/12/2024 10:33 AM EST 03/12/2024 11:35 AM EST [facility] LAB BLOOD ORDERABLES Saadia l Result Performing Organization Address City/[facility]/ZIP Co de Phone Number [facility] [address] [place] [phone] * Hepatitis C Antibody with Reflex to HCV, RNA, Quantitative, Real-Time PCR (03/12/2024 10:33 AM EST) Hepatitis C Antibody Nonreactive Nonreactive [facility] Comment:Antibodies to HCV no t detected; does not exclude early acuteHCV infection. Blood Venous blood specimen / Unknown 03/12/2024 10:33 AM EST 03/12/2024 11:35 AM EST [facility] LAB BLOOD ORDERABLES Saadia l Result Performing Organization Address City/[facility] Co de Phone Number [facility] [address] [place] [phone] [phone] * HIV-1/2 Antigen and Antibodies, Fourth Generation, with Reflexes (03/12/2024 10:33 AM EST) HIV AB/AG Nonreactive Nonreactive [facility] Comment:HIV-1 p24 Ag and/or HIV-1/HIV-2 Ab not detected.A test result that is nonreactive does not exclude thepossibility of exposure to or infection with HIV-1 and/orHIV-2. Nonreactive results in this assay for individualswith prior exposure to HIV-1 and/or HIV-2 may be due toantigen and antibody levels that are below the limit ofdetection of this assay.The [employer] HIV Ag/Ab Combo assay result andsupplemental assay results should be interpreted inconjunction with the patient's clinical presentation,history and other laboratory results. If the results areinconsistent with clinical evidence, additional testing issuggested to confirm the result. Blood Venous blood specimen / Unknown 03/12/2024 10:33 AM EST 03/12/2024 11:35 AM EST [facility] LAB BLOOD ORDERABLES Saadia l Result Performing Organization Address City/[facility]/ZIP Co de Phone Number [facility] [address] [place] [phone] * (ABNORMAL) T4, Free (03/12/2024 10:33 AM EST) Pathologist [facility] Free T4 (Free Thyroxine) 2.31(H) 0.71 - 1.85 ng/dL [facility] 03/12/2024 10:3 3 AM EST 03/12/2024 11:35 AM EST [facility] LAB BLOOD ORDERABLES Saadia l Result Performing Organization Address [facility] Co de Phone Number [facility] [address] [place] [phone] * Hepatic Function Panel (03/12/2024 10:33 AM EST) Pathologist [facility] Bilirubin, Direct 0.3 0.0 - 0.5 mg/dL [facility] Blood Venous blood specimen / Unknown 03/12/2024 10:33 AM EST 03/12/2024 11:35 AM EST [facility] LAB BLOOD ORDERABLES Saadia l Result [facility] [address] [place] [phone] [phone] * (ABNORMAL) Comprehensive Metabolic Panel (03/12/2024 10:33 AM EST) Sodium 136 135 - 145 mmol/L [facility] Potassium 4.2 3.3 - 5.1 mmol/L [facility] Chloride 105 96 - 108 mmol/L [facility] Carbon Dioxide 25 22 - 29 mmol/L [facility] Anion Gap 10(L) 12 - 20 [facility] Urea Nitrogen (BUN) 11 9 - 16 mg/dL [facility] Creatinine, Serum 0.89 0.5 - 1.4 mg/dL [facility] Estimated Glomerular Filt Rate >60 [facility] Comment:Chronic Kidney Disea se: Estimated GFR < 60 mL/min/[id number] Kidney Disease: Estimated GFR < 15 mL/min/1.73m2 Glucose 109 60 - 115 mg/dL [facility] Calcium 9.9 8.4 - 10.2 mg/dL [facility] Bilirubin, Total 0.8 0.0 - 1.0 mg/dL [facility] Aspartate Amino Transferase 39(H) 5 - 37 U/L [facility] Alanine Aminotransferase 70(H) 0 - 40 U/L [facility] Total Protein 7.7 6.5 - 8.0 g/dL [facility] Albumin Level 4.2 3.5 - 5.0 g/dL [facility] Alkaline Phosphatase 83 39 - 117 U/L [facility] Blood Venous blood specimen / Unknown 03/12/2024 10:33 AM EST 03/12/2024 11:35 AM EST us Lynn Capellan REHABILITATION SERVICES COORDINATOR LAB BLOOD ORDERABLES Saadia l Result Performing Organization Address [facility] Co de Phone Number [facility] [address] [place] [phone] * Lipid Panel, Standard (10/23/2023 10:34 AM EDT) Triglycerides 96 <150 mg/dL [facility] Comment:Desirable Triglyceri de: less than 150 mg/dLBorderline High Triglyceride 150-199 mg/dLHigh Triglyceride: 200-499 mg/dLVery High Triglyceride: greater than or equal to 5OO mg/dL Cholesterol 172 <200 mg/dL [facility] Comment:Desirable Cholestero l: less than 200 mg/dLBorderline High Cholesterol: 200-239 mg/dLHigh Cholesterol: greater than 239 mg/dL LDL Cholesterol Calculated 98 <100 mg/dL [facility] Comment:Desirable LDL: less than 100 mg/dLNear Optimal/Above Optimal LDL: 110- 129 mg/dLBorderline High LDL: 130-159 mg/dLHigh LDL: 160-189 mg/dLVery High LDL: greater than or equal to 190 mg/dL HDL Cholesterol 55 >40 mg/dL [facility] Comment:Desirable HDL: great er than 40 mg/dL Note: This HDL assay may give artificially low results in patients with liver disease. Blood Venous blood specimen / Unknown 10/23/2023 10:34 AM EDT 10/23/2023 11:09 AM EDT Ko Eagle MD LAB BLOOD ORDERABLES Final Resul t Performing Organization Address City/[facility]/ZIP Co de Phone Number [facility] [address] [place] [phone] [phone] from Last 3 Months or Most Recently Relevant to Health Maintenance [place] [id number] [facility] [employer] MEDICARE Care Teams Obstetrics And Gynecology Professor Relationship Specialty Start Date End Date Name, MD Ko [address] [place] [phone] PCP - General Family Medicine 04/08/15
--- OUTSIDE RECORDS SUMMARY | 2024-03-15 09:05 | XMS_ITS | Encounter Summary ---
Author Organization [employer] Address [address] [facility] [address] [place] [address] Care Team Providers Care Auditing Coder Name Role Phone Name, Ko CRAWFORD Primary Care Provider [phone] Reason for Visit * Reason Onset Date Comments mar recalls 02/15/2024 Encounter Details Date Type Department Care Team (Late st Contact Info) Description 02/15/2024 Telephone [facility] MEDICINE [address] [place] [address] Otilia Briscoe [place] mar recalls Social History [...] Description 04/28/2024 10:15 AM EDT Office Visit [facility] MED[facility] [address] [place] [address] Name, MD Ko [address] [place] [address] documented as of this encounter Visit Diagnoses Not on filedocumented in this encounter Additional Health Concerns Assessment Noted Time PHQ-9 Depression Total Score: 0 03/30/19 24 10:46 AM EST documented as of this encounter Care Teams Auditing Coder Relationship Specialty Start Date End Date Name, MD Ko [address] [place] [phone] PCP - General Family Medicine 04/08/15 documented as of this encounter
--- OUTSIDE RECORDS SUMMARY | 2024-03-15 09:05 | XMS_ITS | Encounter Summary ---
Author Organization [employer] Address [address] [facility] [address]t [place] [address] Care Team Providers Care Fast Food Server Name Role Phone Name, Ko CRAWFORD Primary Care Provider [phone] Reason for Referral * Consultation (Routine) - Authorized Specialty Diagnoses / Procedures Referred By Cheryl hernandez Referred To Contact Endocrinology Diagnoses Hyperthyroidism Lynn Capellan CNP [address] [place] [address] Phone: tel: fax: [facility] Endocrinology [address] [facility] [address] [place], [place] Phone: tel: fax: Referral ID Status Reason Start Date Expiration Date Visits Requested Visits Authorized [id number] Authorized Specialty Services Required 03/14/2024 03/14/2025 1 1 Encounter Details Date Type Department Care Team ([facility] st Contact Info) Description 03/14/2024 Telephone [facility] MEDICINE [address] [place] [address] Lynn Capellan CNP [address] [place] [address] Social History Tobacco Use Types Packs/Day Years [...] encounter Miscellaneous Notes * Telephone Encounter - Lynn Capellan CNP - 03/14/2024 8:56 AM EST Called pt with [employer] ID#[id number], spoke to patient and his regarding lab results. Chest X-ray was normal, labs were wnl besides high T4 and low TSH, LFTs were also slightly elevated~ less than 5x upper limit. Plan: Pt will come in for additional bloodwork (T3) on Sunday. In the meantime will send referral for endocrine. We will recheck LFTs in 3-6 months per uptodate guidelines. Pt agreeable to plan, all questions/concerns addressed. documented in this encounter Plan of Treatment Upcoming Encounters Date Type Department Care Team ([facility] st Contact Info) Description 04/28/2024 10:15 AM EDT Office Visit [facility] MEDICINE [address] [place] [phone] Name, MD Ko [address] [place] [address] Scheduled Referrals Name Type Priority Associated Diagnoses Order Schedule Referral to Endocrinology Outpatient Referral Routine Hyperthyroidism Expected: 03/14/2024 (Approximate), Expires: 03/14/2025 documented as of this encounter Visit Diagnoses Diagnosis Hyperthyroidism- Primary Thyrotoxicosis without mention of goiter or other cause, without mention of thyrotoxic crisis or storm documented in this encounter Additional Health Concerns Assessment Noted Time PHQ-9 Depression Total Score: 0 03/30/19 24 10:46 AM EST documented as of this encounter Care Teams Fast Food Server Relationship Specialty Start Date End Date Name, [place] [address] PCP - General Family Medicine 04/08/15 documented as of this encounter
--- OUTSIDE RECORDS SUMMARY | 2024-03-15 09:05 | XMS_ITS | Encounter Summary ---
Author Organization [employer] Address [address] [facility] [address] [place] [address] Care Team Providers Care Medical Tech Name Role Phone Name, Ko CRAWFORD Primary Care Provider [phone] Encounter Details Date Type Department Care Team (Late st Contact Info) Description 03/12/2024 9:30 AM EST Office Visit [facility] [address], [place] [phone] Lynn Capellan CNP [address] [place], [place] [phone] Unexplained weight loss (Primary Dx) Social History [...] 9:29 AM EST documented in this encounter Progress Notes * Lynn Capellan, [place] - 03/12/2024 9:30 AM EST Subjective Patient ID: Benito Reveles is a 44 y.o. male who presents for unexplained weight loss. HPI Pt presents today with his son and is reporting unexplained weight loss, cold intolerance, intermittent night sweats, and palpitations. Patient denies changes in activity or dietary patterns. Denies,nausea, vomiting, fever, chills, myalgias. He denies constipation, abdominal pain, or blood in stool. He is very active in the gym and goes everyday, he denies changes in his workout regimen. Non smoker, no alcohol or illicit drug use Does have a hx of testicular cancer ~ 15 years ago, he had surgery and the testicle was removed, denies known recurrence since. Has colonoscopy scheduled for April Review of Systems Constitutional: Positive for unexpected weight change. Negative for activity change, appetite change, chills, diaphoresis, fatigue and fever. Respiratory: Negative for cough, choking, chest tightness, shortness of breath and wheezing. Cardiovascular: Negative for chest pain and palpitations. Gastrointestinal: Negative for abdominal pain, anal bleeding, blood in stool, constipation, diarrhea, nausea and vomiting. Endocrine: Positive for cold intolerance. Negative for heat intolerance, polydipsia, polyphagia andpolyuria. Musculoskeletal: Negative. Neurological: Negative. Psychiatric/Behavioral: Negative. Objective Visit Vitals BP 138/87 Pulse 96 Temp 97.9 ??F (36.6 ??C) (Oral) Resp 20 Ht 5' 9 (1.753 m) Wt 186 lb (84.4 kg) SpO2 95% BMI 27.47 kg/m?? Smoking Status Never BSA 2.03 m?? Physical Exam Vitals reviewed. Constitutional: General: He is not in acute distress. Appearance: Normal appearance. He is not ill-appearing, toxic-appearing or diaphoretic. HENT: Head: Normocephalic and atraumatic. Right Ear: Tympanic membrane, ear canal and external ear normal. Left Ear: Tympanic membrane, ear canal and external ear normal. Nose: Nose normal. Mouth/Throat: Mouth: Mucous membranes are moist. Pharynx: No posterior oropharyngeal erythema. Eyes: Extraocular Movements: Extraocular movements intact. Conjunctiva/sclera: Conjunctivae normal. Pupils: Pupils are equal, round, and reactive to light. Neck: Thyroid: No thyroid mass, thyromegaly or thyroid tenderness. Cardiovascular: Rate and Rhythm: Normal rate and regular rhythm. Pulses: Normal pulses. Heart sounds: Normal heart sounds. No murmur heard. No friction rub. No gallop. Pulmonary: Effort: Pulmonary effort is normal. No respiratory distress. Breath sounds: Normal breath sounds. No stridor. No wheezing, rhonchi or rales. Chest: Chest wall: No tenderness. Abdominal: General: Bowel sounds are normal. There is no distension. Palpations: There is no mass. Tenderness: There is no abdominal tenderness. There is no guarding. Musculoskeletal: Cervical back: No tenderness. Right lower leg: No edema. Left lower leg: No edema. Lymphadenopathy: Cervical: No cervical adenopathy. Right cervical: No superficial, deep or posterior cervical adenopathy. Left cervical: No superficial, deep or posterior cervical adenopathy. Upper Body: Right upper body: No supraclavicular or axillary adenopathy. Left upper body: No supraclavicular or axillary adenopathy. Lower Body: No right inguinal adenopathy. No left inguinal adenopathy. Skin: Capillary Refill: Capillary refill takes less than 2 seconds. Coloration: Skin is not jaundiced. Findings: No bruising. Neurological: General: No focal deficit present. Mental Status: He is alert and oriented to person, place, and time. Mental status is at baseline. Psychiatric: Mood and Affect: Mood normal. Behavior: Behavior normal. Thought Content: Thought content normal. Judgment: Judgment normal. Assessment/Plan Problem List Items Addressed This Visit Unexplained weight loss - Primary Pt has had ~6lbs of weight loss since 10/2023. Will obtain bloodwork-see orders Will obtain Chest XR to r/o malignancy, Tb Pt will f/u with PCP in april Will call pt in for sooner f/u if labs/imaging abnormal Relevant Orders CBC auto differential (Completed) HIV-1/2 Antigen and Antibodies, Fourth Generation, with Reflexes Hepatitis C Antibody with Reflex to HCV, RNA, Quantitative, Real-Time PCR Comprehensive Metabolic Panel (Completed) Hepatic Function Panel (Completed) TSH W/Reflex to FT4 XR Chest 2 Views (Completed) documented in this encounter Miscellaneous Notes * [...] Description 04/28/2024 10:15 AM EDT Office Visit [address] [address] Name, MD Ko [address] [place] [address] documented as of this encounter Procedures Procedure [...] EST Narrative 03/12/2024 11:23 AM EST ? [facility] ?[address] ?[place] [address] ?XRay Report ? Signed ? Patient: Esteras,Benito A ?MR#: [id number] ?? [id number] ? : 1980 ?Acct:[id number] ? Age/Sex: 44 / M ?ADM Date: 01/29/25 ? Loc: HO.HHCL ? Attending Dr: Lynn Capellan LAST REPAIRER HELPER ? Ordering Physician: Lynn Capellan ?? Date of Service: 03/12/24 ?? Procedure(s): XR chest 2V ?? Accession Number(s): [id number] ? cc: Lynn Capellan ? EXAMINATION: ?? [...] ? Signed By: ?<Electronically signed by Ricardo Ryenolds MD in OV> ?03/12/24 1121 ? DD/ 1054 ? TD/TT: 03/12/24 1102 ? Track Rider: ? Procedure Note Donotyulissainterpreter, Image - 03/12/2024 [place] [address] XRay Report Signed Patient: Benito Reveles AMR#: [id number] : 1980Acct:[id number] Age/Sex: 44 / MADM Date: 03/12/24 Loc: HO.HHCL Attending Dr: Lynn Capellan LAST REPAIRER HELPER Ordering Physician: Lynn Capellan Date of Service: 03/12/24 Procedure(s): XR chest 2V Accession Number(s): [id number] cc: Lynn Capellan EXAMINATION: XR CHEST CLINICAL [...] 03/12/24 1121 DD/ 1054 TD/TT: 03/12/24 1102 Track Rider: [facility] RUNNER WORKER IMG XR PROCEDURES Edited Result - Final * (ABNORMAL) TSH W/Reflex to FT4 (03/12/2024 10:33 AM EST) TSH reflex Free T4 <0.01(L) 0.32 - 4.0 uIU/mL [facility] Blood Venous blood specimen / Unknown 03/12/2024 10:33 AM EST 03/12/2024 11:35 AM EST [facility] LAB BLOOD ORDERABLES Saadia l Result Performing Organization Address [facility]/ZIP Co de Phone Number [facility] [address] [place] [phone] * Hepatic Function Panel (03/12/2024 10:33 AM EST) Pathologist [facility] Bilirubin, Direct 0.3 0.0 - 0.5 mg/dL [facility] Blood Venous blood specimen / Unknown 03/12/2024 10:33 AM EST 03/12/2024 11:35 AM EST [facility] LAB BLOOD ORDERABLES Saadia l Result Performing Organization Address City/[facility]/ZIP Co de Phone Number [facility] [address] [place] [phone] * (ABNORMAL) Comprehensive Metabolic Panel (03/12/2024 10:33 AM EST) Pathologist [facility] Sodium 136 135 - 145 mmol/L [facility] Potassium 4.2 3.3 - 5.1 mmol/L [facility] Chloride 105 96 - 108 mmol/L [facility] Carbon Dioxide 25 22 - 29 mmol/L [facility] Anion Gap 10(L) 12 - 20 [facility] Urea Nitrogen (BUN) 11 9 - 16 mg/dL [facility] Creatinine, Serum 0.89 0.5 - 1.4 mg/dL [facility] Estimated Glomerular Filt Rate >60 [facility] Comment:Chronic Kidney Disea se: Estimated GFR < 60 mL/min/1.81h4Bisybu Kidney Disease: Estimated GFR < 15 mL/min/1.73m2 Glucose 109 60 - 115 mg/dL [facility] Calcium 9.9 8.4 - 10.2 mg/dL [facility] Bilirubin, Total 0.8 0.0 - 1.0 mg/dL [facility] Aspartate Amino Transferase 39(H) 5 - 37 U/L [facility] Alanine Aminotransferase 70(H) 0 - 40 U/L [facility] Total Protein 7.7 6.5 - 8.0 g/dL [facility] Albumin Level 4.2 3.5 - 5.0 g/dL [facility] Alkaline Phosphatase 83 39 - 117 U/L [facility] Blood Venous blood specimen / Unknown 03/12/2024 10:33 AM EST 03/12/2024 11:35 AM EST [facility] LAB BLOOD ORDERABLES Saadia l Result Performing Organization Address [facility] [[email or web address]] Co de Phone Number [facility] [address] [place] [phone] * Hepatitis C Antibody with Reflex to HCV, RNA, Quantitative, Real-Time PCR (03/12/2024 10:33 AM EST) Hepatitis C Antibody Nonreactive Nonreactive [facility] Comment:Antibodies to HCV no t detected; does not exclude early acuteHCV infection. Blood Venous blood specimen / Unknown 03/12/2024 10:33 AM EST 03/12/2024 11:35 AM EST [facility] LAB BLOOD ORDERABLES Saadia l Result Performing Organization Address [facility] [[email or web address]] Co de Phone Number [facility] [address] [place] [phone] * HIV-1/2 Antigen and Antibodies, Fourth Generation, with Reflexes (03/12/2024 10:33 AM EST) Pathologist [facility] HIV AB/AG Nonreactive Nonreactive [facility] Comment:HIV-1 p24 Ag and/or HIV-1/HIV-2 Ab not detected.A test result that is nonreactive does not exclude thepossibility of exposure to or infection with HIV-1 and/orHIV-2. Nonreactive results in this assay for individualswith prior exposure to HIV-1 and/or HIV-2 may be due toantigen and antibody levels that are below the limit ofdetection of this assay.[employer] HIV Ag/Ab Combo assay result andsupplemental assay results should be interpreted inconjunction with the patient's clinical presentation,history and other laboratory results. If the results areinconsistent with clinical evidence, additional testing issuggested to confirm the result. Blood Venous blood specimen / Unknown 03/12/2024 10:33 AM EST 03/12/2024 11:35 AM EST [facility] LAB BLOOD ORDERABLES Saadia l Result [facility] [address] [place] [phone] * (ABNORMAL) CBC auto differential (03/12/2024 10:33 AM EST) [facility] White Blood Count 4.6(L) 4.8 - 10.8 X10*3/uL [facility] Red Blood Count 4.67 4.60 - 5.80 X10*6/uL [facility] Hemoglobin 12.7(L) 14.0 - 18.0 g/dl [facility] Hematocrit 38.7(L) 42.0 - 52.0 % [facility] Mean Corpuscular Volume 82.9 80.0 - 98.0 fL [facility] Mean Corpuscular Hemoglobin 27.2 27.0 - 33.0 pg [facility] Mean Corpuscular HGB Conc 32.8 31.0 - 36.0 g/dl [facility] Red Cell Distribution Width 11.7 11.0 - 16.0 % [facility] Platelet Count 272 160 - 400 X10*3/uL [facility] Mean Platelet Volume 10.0 9.4 - 12.4 fL [facility] Neutrophils Percent Auto 52.2 45 - 73 % [facility] Imm Gran Pct Auto 0.2 0.0 - 0.4 % [facility] Lymphocytes Percent Auto 33.0 20 - 40 % [facility] Monocytes Percent Auto 11.0 2 - 11 % [facility] Eosinophils Percent Auto 3.2 0 - 4 % [facility] Basophils Percent Auto 0.4 0 - 2 % [facility] NRBC Pct Auto 0.0 0.0 - 0.2 /100WBC [facility] Neutrophils Absolute Auto 2.4 2.0 - 8.3 x10*3/uL [facility] Imm Gran Abs Auto 0.01 0.00 - 0.03 X10*3/uL [facility] Lymphocytes Absolute Auto 1.5 1.2 - 4.9 X10*3/uL [facility] Monocytes Absolute Auto 0.5 0.1 - 1.2 X10*3/uL [facility] Eosinophils Absolute Auto 0.2 0.0 - 0.4 X10*3/uL [facility] Basophils Absolute Auto 0.0 0.0 - 0.2 X10*3/uL [facility] NRBC Abs Auto 0.000 0.0 - 0.012 X10*3/uL [facility] Blood Venous blood specimen / Unknown 03/12/2024 10:33 AM EST 03/12/2024 11:35 AM EST Lynn Capellan [facility] LAB BLOOD ORDERABLES Saadia l Result [facility] [address] [place] [phone] documented in this encounter Visit Diagnoses Diagnosis Unexplained weight loss- Primary Loss of weight documented in this encounter Additional Health Concerns Assessment Noted Time PHQ-9 Depression Total Score: 0 03/30/19 24 10:46 AM EST documented as of this encounter Care Teams Medical Tech Relationship Specialty Start Date End Date Name, MD Ko [address] [place] [address] PCP - General Family Medicine 04/08/15 documented as of this encounter
[2024-03-16 08:47] LABS: Triiodothyronine T3 Total 344 ng/dL (76-181)
[2024-03-18 12:24] LABS: Thyroglobulin Antibodies <1 IU/mL (< or = 1); Thyroid Peroxidase Antibodies 127 IU/mL (<9)
== END 2024-03-15 09:02 | disposition home or self-care (01) ==
LOC: HO.LAB 09:01
PROVIDERS: PCP Internal Medicine Geriatric Medicine
DX: E03.9 Hypothyroidism, unspecified (principal)
CPT/HCPCS: 36415; 84480; 86376; 86800

== ENCOUNTER 2024-08-06 11:02 | Outpatient (AMB) | payer MEDICARE, MEDICAID, SELFPAY ==
--- NOTE | 2024-08-06 11:15 | MHC.OFFVIS ---
Vital Signs 08/06/24 11:16 Height 5 ft 7 in Weight 194 lb 0.108 oz BMI 30.4 BP 147/83 H Blood Pressure Location Lt brachial Position Sitting Pulse 75 Intake Visit Reasons: Colonoscopy screening Intake Note: Benito presents in the office as a colonoscopy screening. CC: personal history of cancer of the testicle. He states that he is just here for a screening. Asphalt Paving Supervisor Required: Yes Allergies No Known Allergies Allergy (Verified 07/15/24 11:44) HPI HPI Colonoscopy screening: Details: 44 year old? male here with past medical history hypertension, hyperlipidemia, thyroid disease and testicular cancer is here today for pre colonoscopy screening.? Patient was sent to us by his PCP.? This is his first colonoscopy screening.? Patient denies any gastrointestinal symptoms in the past or at present.? Denies any personal or family history of gastrointestinal disease, colon polyps, or CRC.? Denies history of difficulty with sedation or anesthesia in the past.? Negative for history of sleep apnea.? Denies any history of cardiac, renal, pulmonary, or hepatic disease.?? No history of infectious? diseases like hepatitis A, B, C, HIV or tuberculosis.? Patient is not on any anticoagulation [facility] Medical History (Updated 08/06/24 @ 11:43 by Pamela Sutherland, [facility]) Thyroid disease Erectile dysfunction HTN (hypertension) HLD (hyperlipidemia) Review of Systems Const Denies weight gain and Denies weight loss ENT Reports no additional complaints, Denies dysphagia and Denies odynophagia Card Reports no additional complaints Resp Reports no additional complaints GI Denies abdominal pain, Denies belching, Denies melena, Denies bloating, Denies change in bowel habits, Denies dysphagia, Denies excessive flatus, Denies dyspepsia, Denies heartburn, Denies diarrhea, Denies loose stools, Denies nausea, Denies odynophagia and Denies vomiting Reports no additional complaints Musc Reports no additional complaints Neuro Reports no additional complaints Psych Reports no additional complaints Endo Reports no additional complaints Physical Exam Vital Signs: Last Vital Signs Pulse 75 08/06/24 11:16 BP 147/83 H 08/06/24 11:16 BMI result Body Mass Index 30.4 Const General: healthy appearing, no acute distress and well developed Nutritional Appearance: well nourished Orientation/consciousness: patient oriented x3 Resp Effort & Inspection: normal respiratory effort, able to speak in complete sentences, no tracheal deviation and symmetric chest movement Auscultation: clear to auscultation bilaterally Cardio Rate: regular rate GI Inspection: Yes normal to inspection and No distended Palpation (GI): Soft to palpation, not firm, nontender and No hepatosplenomegaly present Auscultation: normal bowel sounds General: Yes no CVA tenderness Back/Spine/Pelvis Back: no CVA tenderness Skin General skin exam: elasticity normal, turgor normal and dry skin Neuro General: patient oriented x3 Psych Appearance: grossly normal Mental Status: mental status grossly normal Assessment & Plan Assessment & Plan (1) Screen for colon cancer: Code(s): Z12.11 - Encounter for screening for malignant neoplasm of colon Plan Patient denies any GI, cardiac or respiratory symptoms.? Denies any issues with anesthesia in the past.? Denies any history of sleep apnea.? No history infectious diseases in the past or present.? Not on any anticoagulation therapy.? No family or personal history of colon cancer or polyps.? Patient denies melena, hematochezia, unintentional weight loss or ribbon like stools.? Discussed at length the pre-procedure,? prep, diet & medications as well as what to expect prior, during and after the procedure.?? Stressed the importance of good bowel prep.? Recommended the use of Vaseline or Calmoseptine OTC & baby wipes with bowel movements to promote comfort.? ?Patient verbalizes understanding and agrees to plan of care.? He was given the opportunity to ask questions and all questions answered.? We will see him after the procedure.? Medications: New bisacodyl (Dulcolax (bisacodyl)) take 4 tabs at noon the day before your colonoscopy 20 mg (4 x 5 mg) PO ONCE 4 tabs 0RF constipation 1 day Z12.11 - Encounter for screening for malignant neoplasm of colon polyethylene glycol 3350 (Miralax) As directed by gastro[facility]ology department at [facility] 238 grams PO ONCE 238 grams 0RF Z12.11 - Encounter for screening for malignant neoplasm of colon Coding Level of Care Code New Pt Level 3 (77018) Diagnoses Screen for colon cancer Z12.11 Time Spent (min) 40 Comment 30 minutes spent with patient and additional 10 minutes spent reviewing his records
[2024-08-06 11:16] VITALS: BP 147/83; PULSE 75; BMI 30.4
--- OUTSIDE RECORDS SUMMARY | 2024-08-06 13:06 | XMS_ITS | Encounter Summary ---
Author Organization [employer] Address [address] [facility] [address] [place] [address] Care Team Providers Care Vp Digital Marketing Name Role Phone Name, Ko CRAWFORD Primary Care Provider [phone] Reason for Visit * Reason Onset Date Comments Hospital Follow-up 03/28/2024 Encounter Details Date Type Department Care Team (Late st Contact Info) Description 03/28/2024 Telephone [facility] [address] [place], [place] [phone] Name, MD Ko [address] [place] [address] Hospital Follow-up Social History Tobacco Use Types Packs/Day Years [...] housing situation today? I have marj bianchi 03/28/[address] you li ve. Do you have problems with any of the following? None of the above 03/28/2024 Food Insecurity Answer Date Recorded Within the past 12 months, y ou worried that your food would run out before you got money to buy more: Never True 03/28/2024 Within the past 12 months,th e food you bought just didn't last and you didn't have enough money to get more: Never True Transportation Answer Date Recorded In the past 12 months, has l ack of transportation kept you from medical appts, meetings, work or from getting things needed for daily living? No 03/28/2024 Utilities Answer Date Recorded In the past 12 months, has t he electric, gas, oil or water company threatened to shut off services in your home? No 03/28/2024 Depression Answer Date Recorded Patient Health Questionnaire-2 Score 0 03/30/2023 Internet Access Answer Date Recorded Internet Access Q1 Yes 03/28/2024 Internet Access Q2 Not on file 03/28/2024 Sex and Gender Information Value Date Recorded Sex Assigned at Male 12/12/2021 10:15 AM EDT Legal Sex Male 10:15 AM EDT Gender Identity Male 12/12/2021 10:15 AM EDT Sexual Orientation Straight 12/12/2021 10 :15 AM EDT documented as of this encounter Miscellaneous Notes * Telephone Encounter - Florence Paiz - 03/28/2024 9:02 AM EST Tc from pt requesting a HDF appt. Hospital: [facility] Date of admission: 03-24-2024 Discharge date: 03-26-2024 Diagnosed: cardiac arrest symptoms *Send message to [facility] Clinical Care Coordinators (Sinhala Speaker) documented in this encounter Plan of Treatment Upcoming Encounters Date Type Department Care Team (Late st Contact Info) Description 08/07/2024 9:45 AM EDT Office Visit [facility] [address] [place] [phone] Name, MD Ko [address] [place] [address] documented as of this encounter Visit Diagnoses Not on filedocumented in this encounter Additional Health Concerns Assessment Noted Time PHQ-9 Depression Total Score: 0 03/30/19 10:46 AM EST documented as of this encounter Care Teams Vp Digital Marketing Relationship Specialty Start Date End Date Name, MD Ko [address] [place] [phone] PCP - General Family Medicine 04/08/15 documented as of this encounter
== END 2024-08-06 12:36 | disposition home or self-care (01) ==
LOC: HO.HGI 11:03
PROVIDERS: PCP Internal Medicine Geriatric Medicine; Visit Provider Nurse Practitioner Family
DX: Z12.11 Encounter for screening for malignant neoplasm of colon (principal)
CPT/HCPCS: 99024

== ENCOUNTER → 2024-08-06 11:02 | Outpatient (BNVA) | payer MEDICARE, MEDICAID, SELFPAY | PROVIDERS: PCP Internal Medicine Geriatric Medicine; Visit Provider Nurse Practitioner Family | DX: Z12.11 Encounter for screening for malignant neoplasm of colon (principal) | CPT/HCPCS: 99212 ==

== ENCOUNTER 2025-01-19 09:09 | Outpatient (REF) | payer MEDICARE, MEDICAID, SELFPAY ==
[2025-01-19 11:24] LABS: MANUAL DIFF FLAG NO
[2025-01-19 11:52] LABS: Hematocrit 43.3 % (42.0-52.0); Hemoglobin 14.4 g/dl (14.0-18.0); Imm Gran Abs Auto 0.01 X10*3/uL (0.00-0.03); Imm Gran Pct Auto 0.2 % (0.0-0.4); Lymphocytes Absolute Auto 2.3 X10*3/uL (1.2-4.9); Mean Corpuscular HGB Conc 33.3 g/dl (31.0-36.0); Mean Corpuscular Hemoglobin 29.3 pg (27.0-33.0); Mean Corpuscular Volume 88.0 fL (80.0-98.0); NRBC Abs Auto 0.000 X10*3/uL (0.0-0.012); NRBC Pct Auto 0.0 /100WBC (0.0-0.2); Platelet Count 270 X10*3/uL (160-400); Red Blood Count 4.92 X10*6/uL (4.60-5.80); White Blood Count 6.4 X10*3/uL (4.8-10.8)
[2025-01-19 12:17] LABS: Alanine Aminotransferase 57 U/L (0-40); Albumin Level 5.0 g/dL (3.5-5.0); Alkaline Phosphatase 84 U/L (39-117); Anion Gap 10 (12-20); Aspartate Amino Transferase 39 U/L (5-37); Blood Urea Nitrogen 15 mg/dL (9-16); Calcium 10.2 mg/dL (8.4-10.2); Carbon Dioxide 28 mmol/L (22-29); Chloride 105 mmol/L (96-108); Cholesterol 201 mg/dL (<200); Estimated Glomerular Filt Rate 56; HDL Cholesterol 76 mg/dL (>40); Potassium 4.3 mmol/L (3.3-5.1); Sodium 139 mmol/L (135-145); Total Protein 8.1 g/dL (6.5-8.0); Triglycerides 92 mg/dL (<150)
[2025-01-19 12:19] LABS: Thyroid Stimulating Hormone 2.86 uIU/mL (0.32-4.0)
== END 2025-01-19 09:10 | disposition home or self-care (01) ==
LOC: HO.HHCL 09:09
PROVIDERS: PCP Internal Medicine Geriatric Medicine; Visit Provider Internal Medicine Geriatric Medicine
DX: E05.00 Thyrotoxicosis with diffuse goiter without thyrotoxic crisis or storm (principal); E78.00 Pure hypercholesterolemia, unspecified
CPT/HCPCS: 36415; 80053; 80061; 84436; 84443; 84480; 85025

== ENCOUNTER 2025-01-26 10:00 | Outpatient (REF) | payer MEDICARE, MEDICAID, SELFPAY ==
--- OUTSIDE RECORDS SUMMARY | 2025-01-23 23:59 | XMS_ITS | Continuity of Care Document ---
Author Organization [facility] Address [address] [place] [address]- Care Team Providers Care Global Sourcing Manager Name Role Phone Name Ko CRAWFORD Primary Care Physician Encounter [facility] Date(s): 12/24/24 - 01/23/25 [facility] [address] [place] [phone]- Encounter Type: Triage Allergies, Adverse Reactions, Alerts No Known Allergies Medications acetaminophen 325 mg oral tablet 650 mg, By Mouth, Every 6 hours, PRN, # 50 tablet, Refills 0, Tot. Refills 0, Maintenance, Pain , Mild, 03/26/24 9:31:00 AM EST, Route to Pharmacy Electronically, [facility], Partial fill upon patient request if the prescription is for a schedule II opioid drug., 175, cm, 03/26/24 7:36:00 EST, Height, 76.4, kg, 03/25/24 4:23:00 EST, Dry Weight Start Date: 03/26/24 Status: Ordered Medication Dispense Status: Completed Quantity: 50.0 Unit: tablet Total Allowed Fills: 1 Fills Dispensed: 0 amLODIPine 5 mg oral tablet 1 tablet = 5 mg, By Mouth, Daily, # 30 tablet, 0 Refills, Maintenance, 03/24/24 6:46:00 PM EST, Tablet, Partial fill upon patient request if the prescription is for a schedule II opioid drug. Start Date: 03/24/24 Status: Ordered Medication Dispense Status: Completed Quantity: 30.0 Unit: tablet Total Allowed Fills: 1 Fills Dispensed: 0 atenolol 25 mg oral tablet 25 mg, 1, tablet, By Mouth, Daily, # 30 tablet, Refills 0, Maintenance, 03/24/24 6:46:00 PM EST, Partial fill upon patient request if the prescription is for a schedule II opioid drug. Start Date: 03/24/24 Status: Ordered Medication Dispense Status: Completed Quantity: 30.0 Unit: tablet Total Allowed Fills: 1 Fills Dispensed: 0 cetirizine 10 mg oral tablet 1 tablet = 10 mg, By Mouth, Daily, # 30 tablet, 0 Refills, Maintenance, 03/24/24 6:46:00 PM EST, Tablet, Partial fill upon patient request if the prescription is for a schedule II opioid drug. Start Date: 03/24/24 Status: Ordered Medication Dispense Status: Completed Quantity: 30.0 Unit: tablet Total Allowed Fills: 1 Fills Dispensed: 0 losartan 50 mg oral tablet 1 tablet = 50 mg, By Mouth, Daily, # 30 tablet, 0 Refills, Maintenance, 03/24/24 6:46:00 PM EST, Tablet, Partial fill upon patient request if the prescription is for a schedule II opioid drug. Start Date: 03/24/24 Status: Ordered Medication Dispense Status: Completed Quantity: 30.0 Unit: tablet Total Allowed Fills: 1 Fills Dispensed: 0 methimazole 5 mg oral tablet See Instructions, 2 tablets daily, Sunday to Sunday ONLY with food, # 60 tablet, Refills 5, Tot. Refills 5, Maintenance, 12/25/24 12:48:00 PM EST, Instructions Replace Required Details, Route to Pharmacy Electronically, [facility], Partial fill upon patient request if the prescrip tion is for a schedule II opioid drug., 175, cm, 10/01/24 14:39:00 EDT, Height, 76.4, kg, 03/25/24 4:23:00 EST, Dry Weight Start Date: 12/25/24 Status: Ordered Medication Dispense Status: Completed Quantity: 60.0 Unit: tablet Total Allowed Fills: 6 Fills Dispensed: 0 Indications: Thyrotoxicosis with diffuse goiter without thyrotoxic crisis or storm; rosuvastatin 20 mg oral tablet 1 tablet = 20 mg, By Mouth, Daily, # 60 tablet, 0 Refills, Maintenance, 03/24/24 6:46:00 PM EST, Tablet, Partial fill upon patient request if the prescription is for a schedule II opioid drug. Start Date: 03/24/24 Status: Ordered Medication Dispense Status: Completed Quantity: 60.0 Unit: tablet Total Allowed Fills: 1 Fills Dispensed: 0 Social History Social History Type Response Smoking Status Never (less than 100 in lifetime) entered on: 10/01/24 Sexual Orientation Self described orien tation: ; Straight or heterosexual Sex Sex Representation Male (finding) Patient Care team information Care Team Personnel Name: Name Ko CRAWFORD Position: S Outreach Member Role: PCP Address: [address] [place] [address] Telecom: Care Team Related Persons Name: HANNAH HAMPTON Name: CUATE RODRIGUEZ Insurance Providers Guarantor name: [facility] [employer] Plan Information #: 1 Payer: MEDICARE B Payer Identifier: NA Member Number: [id number] Group Number: NA Subscriber Identifier: NA Relationship to Subscriber: self Coverage Type: NA Coverage Verification Date: NA Telecom: NA Address: Health Plan Information #: 2 Payer: [employer] Payer Identifier: NA Member Number: [id number] Group Number: NA Subscriber Identifier: NA Relationship to Subscriber: self Coverage Type: MEDICAID Coverage Verification Date: NA Telecom: NA Address:
--- OUTSIDE RECORDS SUMMARY | 2025-01-23 23:59 | XMS_ITS | Continuity of Care Document ---
Author Organization [facility] Address [address] [place] [address]- Care Team Providers Care Nurse Licensed Practical Name Role Phone Name Ko CRAWFORD Primary Care Physician [place] [facility] [place](s): 12/24/24 - 01/23/25 [facility] [address] [place] [phone]- Encounter Type: Triage Allergies, Adverse Reactions, Alerts No Known Allergies Medications acetaminophen 325 mg oral tablet 650 mg, By Mouth, Every 6 hours, PRN, # 50 tablet, Refills 0, Tot. Refills 0, Maintenance, Pain , Mild, 03/26/24 9:31:00 AM EST, Route to Pharmacy Electronically, [facility], Partial fill upon patient request [...] Replace Required Details, Route to Pharmacy Electronically, [facility], Partial fill upon patient request [...] information Care Team Personnel Name: Name Ko CARWFORD Position: S Outreach Member Role: PCP Address: [address] [place] [address] Telecom: Care Team Related Persons Name: HANNAH HAMPTON Name: CUATE RODRIGUEZ Insurance Providers Guarantor [facility]: [facility] Plan Information #: 1 Payer: MEDICARE B Payer Identifier: NA Member Number: [id number] Group Number: NA Subscriber Identifier: NA Relationship to Subscriber: self Coverage Type: NA Coverage Verification Date: NA Telecom: NA Address: Health Plan Information #: 2 Payer: [employer] Payer Identifier: NA Member Number: [id number] Group Number: NA Subscriber Identifier: NA Relationship to Subscriber: self Coverage Type: MEDICAID Coverage Verification Date: NA Telecom: NA Address:
--- OUTSIDE RECORDS SUMMARY | 2025-01-26 10:00 | XMS_ITS | Encounter Summary ---
Author Organization [employer] Address [address] [facility] [address]t [place] [address] Care Team Providers Care Nip Wrapper Name Role Phone Name, Ko CRAWFORD Primary Care Provider Reason for Visit * Reason Comments burning with urination. Encounter Details Date Type Department Care Team ([facility] st Contact Info) Description 01/26/2025 10:00 AM EST Office Visit [facility] [address] [place] [address] Kwame Sanchez MD [address] [place] [address] Burning with urination (Primary Dx); Essential hypertension [...] scrotal swelling and testicular pain. OBJECTIVE Vitals: 12/15/25 0943 BP: (!) 170/100 Pulse: 80 Resp: [...] - POCT urinalysis dipstick manually resulted (CPT 67388) Essential hypertension Comments: Uncontrolled Pt needs to be on a DASH diet TO follow up w/ PCP. [1] Patient Active Problem List Diagnosis Migraine with aura Malignant tumor of testis ([facility]/HCC) (HCC) Impotence due to erectile dysfunction Hypercholesterolemia [...] Description 04/06/2025 10:00 AM EST Office Visit [facility] [address] [place] [address] Name, MD Ko [address] [place] [address] Scheduled Orders Name Type Priority Associated Diagnoses Orde r Schedule Culture, Urine, Routine Microbiology Routine Burning with urination Ordered: 01/26/2025 Chlamydia/Trichomona s/Neisseria gonorrhoeae, PCR, Urine Lab Routine Burning with urination Ordered: 01/26/2025 documented as of this encounter Procedures Procedure Name Priority Date/Time Associated Diagnosis Comments POCT URINALYSIS DIPSTICK Routine 01/26/2025 9:59 AM EST Burning with urination documented in this encounter Results * (ABNORMAL) POCT urinalysis dipstick manually resulted (CPT 65160) (01/26/2025 9:59 AM EST) Color, UA Yellow [...] Noted Time PHQ-9 Depression Total Score: 13 04/28/2 025 10:36 AM EDT documented as of this encounter Care Teams Nip Wrapper Relationship Specialty Start Date End Date Name, MD Ko [address] [place] [address] [place] [address] PCP - General Family Medicine 04/08/15 documented as of this encounter
--- OUTSIDE RECORDS SUMMARY | 2025-01-26 22:25 | XMS_ITS | Encounter Summary ---
Author Organization [employer] Address [address] [place] [address] 7t [place] [address] Care Team Providers Care Cooker Sulfate Name Role Phone Name, Ko CRAWFORD Primary Care Provider [phone] Encounter Details Date Type Department Care Team ([facility] st Contact Info) Description 01/20/2025 Results Follow-Up [facility] [address] [place], [place] [phone] Lynn Capellan, MILLING MACHINE OPERATOR [address] [place], [place] [phone] TSH, T3, Total, T4 (Thyroxine), Total Social History Tobacco Use Types Packs/Day Years [...] as of this encounter Miscellaneous Notes * Result Encounter Note - Lynn Capellan CNP - 01/20/2025 1:36 PM EST FYI documented in this encounter Plan of Treatment Upcoming Encounters Date Type Department Care Team (Late st Contact Info) Description 04/06/2025 10:00 AM EST Office Visit [facility] [address] [place] [address] Name, MD Ko [address] [place] [address] documented as of this encounter Visit Diagnoses Not on filedocumented in this encounter Additional Health Concerns Assessment Noted Time PHQ-9 Depression Total Score: 13 025 10:36 AM EDT documented as of this encounter Care Teams Cooker Sulfate Relationship Specialty Start Date End Date Name, MD Ko [address] [place] [address] PCP - General Family Medicine 04/08/15 documented as of this encounter
--- OUTSIDE RECORDS SUMMARY | 2025-01-26 22:25 | XMS_ITS | Encounter Summary ---
Author Organization [employer] Address [address] [facility] 7t [place] [address] Care Team Providers Care Bioinformatics Support Specialist Name Role Phone Name, Ko CRAWFORD Primary Care Provider [phone] Reason for Visit * Reason Onset Date Comments Hospital Follow-up 03/28/2024 Encounter Details Date Type Department Care Team (Late st Contact Info) Description 03/28/2024 Telephone [facility] [address] [place] [address] Name, MD Ko [address] [place] [address] Hospital Follow-up Social History Tobacco Use Types [...] from pt requesting a HDF appt. Hospital: [facility] Date of admission: 03-24-2024 Discharge date: 03-26-2024 Diagnosed: cardiac arrest symptoms *Send message to [place] [facility] Care Coordinators (Czech Speaker) documented in this encounter Plan of Treatment Upcoming Encounters Date Type Department Care Team (Late st Contact Info) Description 04/06/2025 10:00 AM EST Office Visit [facility] [address] [place] [phone] Name, MD Ko [address] [place] [address] documented as of this encounter Visit Diagnoses Not on filedocumented in this encounter Additional Health Concerns Assessment Noted Time PHQ-9 Depression Total Score: 0 03/30/19 24 10:46 AM EST documented as of this encounter Care Teams Bioinformatics Support Specialist Relationship Specialty Start Date End Date Name, MD Ko [address] [place] [phone] PCP - General Family Medicine 04/08/15 documented as of this encounter
--- OUTSIDE RECORDS SUMMARY | 2025-01-26 22:25 | XMS_ITS | Encounter Summary ---
Author Organization [employer] Address [address] [facility] 7t [place] [address] Care Team Providers Care Lab Nurse Name Role Phone Name, Ko CRAWFORD Primary Care Provider [phone] Encounter Details Date Type Department Care Team (Latest Contact Info) Description 01/26/2025 Travel Social History Tobacco Use Types Packs/Day Years [...] Description 04/06/2025 10:00 AM EST Office Visit [facility] [address] [place] [phone] Name, MD Ko [address] [place] [phone] documented as of this encounter Visit Diagnoses Not on filedocumented in this encounter Additional Health Concerns Assessment Noted Time PHQ-9 Depression Total Score: 13 04/28/ 025 10:36 AM EDT documented as of this encounter Care Teams Lab Nurse Relationship Specialty Start Date End Date Name, MD Ko [address] [place] [phone] PCP - General Family Medicine 04/08/15 documented as of this encounter
--- OUTSIDE RECORDS SUMMARY | 2025-01-26 22:26 | XMS_ITS | Encounter Summary ---
Author Organization [employer] Address [address] [facility] [address]t [place] [address] Care Team Providers Care Weigher Production Name Role Phone Name, Ko CRAWFORD Primary Care Provider [phone] Reason for Visit * Reason Comments Med Refill Encounter Details Date Type Department Care Team ([facility] st Contact Info) Description 01/13/2024 Refill [facility] [address] [place], [place] [phone] Name, MD Ko [address] [place] [address] Other hyperlipidemia Social History Tobacco Use Types [...] Description 04/06/2025 10:00 AM EST Office Visit [facility] [address] [place] [phone] NameKo MD [address] [place] [phone] documented as of this encounter Visit Diagnoses Diagnosis Other hyperlipidemia documented in this encounter Additional Health Concerns Assessment Noted Time PHQ-9 Depression Total Score: 0 03/30/19 24 10:46 AM EST documented as of this encounter Care Teams Weigher Production Relationship Specialty Start Date End Date Name, MD Ko [address] [place] [address] PCP - General Family Medicine 04/08/15 documented as of this encounter
--- OUTSIDE RECORDS SUMMARY | 2025-01-26 22:26 | XMS_ITS | Clinical Summary ---
Author Organization [employer] Address [address] [place] [address] 7[address] [place] [address] Care Team Providers Care Vp Training Name Role Phone Name, Ko CRAWFORD Primary Care Provider Allergies No known active allergies Medications methIMAzole (Tapazole) 10 MG tabletIndicati ons:Graves' Disease,Hypert hyroidism,Thyr otoxicosis Take 1 tablet by mouth See administration instructions. One tab AM Active Blood Pressure kitIndications :Hospital discharge follow-up 1 kit Once per day. 1 kit 025 Active amLODIPine (Norvasc) 5 MG tablet Take 1 tablet (5 mg) by mouth Once per day. 90 tablet 3 025 2025 Active losartan (Cozaar) 50 MG tablet Take 1 tablet (50 mg) by mouth Once per day. 90 tablet 3 025 2025 Active rosuvastatin (Crestor) 20 MG tablet Take 1 tablet (20 mg) by mouth Once per day. 90 tablet 3 025 2025 Active cetirizine (ZyrTEC) 10 MG tablet Take 1 tablet (10 mg) by mouth Once per day. 90 tablet 1 01/01/20 25 11:44 AM EST 025 Active Viagra 100 MG tabletIndicati ons:Erectile dysfunction, unspecified erectile dysfunction type TAKE 1 TABLET 1 HOUR BEFORE SEXUAL RELATIONS ONCE DAILY NEEDED. 10 tablet 01/01/20 11:44 AM EST 025 Active fluticasone (Flonase) 50 MCG/ACT nasal spray SPRAY 2 SPRAYS INTO EACH NOSTRIL IN THE MORNING SHAKE GENTLY/PRIME BEFORE 1ST USE&CLEAN TIP/REPLACE CAP 48 mL 024 2024 Discontinued(I neffective) Viagra 100 MG tabletIndicati ons:Erectile dysfunction, unspecified erectile dysfunction type TAKE 1 TABLET 1 HOUR BEFORE SEXUAL RELATIONS ONCE DAILY NEEDED. 10 tablet 025 2024 Discontinued(R eorder (will not trigger notification to Pharmacy)) cetirizine (ZyrTEC) 10 MG tablet TAKE 1 TABLET BY MOUTH ONCE DAILY 90 tablet 1 025 2024 Discontinued(R eorder (will not trigger notification to Pharmacy)) Active Problems Problem Noted Date Diagnosed Date Hyperthyroidism 04/28/2024 Graves disease 04/11/2024 Assessment & Plan (06/24/2024 11:08 AM EDT): -patient is stable and reports being symptom free -denies side effects of the new med -he is connected with Endocrine and says he's recieved an appointment Dyslipidemia 05/22/2018 CKD (chronic kidney disease) stage 3, GFR 30-59 ml/min ([facility]) 01/03/2017 Impotence due to erectile dysfunction 12/06/2016 Essential hypertension 05/01/2016 Malignant tumor of testis ([facility]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 He had curative right orchiectomy with Dr Kane brady in 2011 Hypercholesterolemia 04/29/2015 Herpes simplex 04/15/2009 Allergic rhinitis 06/21/2007 Migraine with aura 12/06/2006 Overview (03/27/2022): IMO update Resolved Problems Problem Noted Date Diagnosed Date Resolved Date Unexplained weight loss 03/12/202407/14 Assessment & Plan (03/12/2024 12:27 PM EST): Pt has had ~6lbs of weight loss since 10/2023. Will obtain bloodwork-see orders Will obtain Chest XR to r/o malignancy, Tb Pt will f/u with PCP in april Will call pt in for sooner f/u if labs/imaging abnormal Encounters Date Type Department Care Team Description 01/26/2025 10:00 AM EST Office Visit [facility] [address] [place] [phone] Kwame Sanchez MD Burning with urination (Primary Dx); Essential hypertension 01/26/2025 Travel 01/20/2025 Results Follow-Up [facility] [address] [place] [address] Lynn Capellan CNP TSH, T3, Total, T4 (Thyroxine), Total 12/31/2024 10:30 AM EST Office Visit [facility] [address] [place] [address] Ko Eagle MD Essential hypertension (Primary Dx); Graves disease; Hypercholesterolemia; Allergic rhinitis, unspecified seasonality, unspecified trigger; Erectile dysfunction, unspecified erectile dysfunction type; Healthcare maintenance; Encounter for immunization 12/31/2024 Travel 12/30/2024 Telephone [facility] [address] [place] [phone] Otilia Briscoe MA chart prep 10/29/2024 Refill [facility] [address] [place] [phone] Ko Eagle MD from Last 3 Months Immunizations Immunization Administration Dates Next Due Influenza injectable quadriv alent IIV4 with preservative 03/05/2019,12/06/2016,11/03/2015 Influenza injectable quadriv alent preservative free 03/30/2023,12/12/2021,12/21/2020,2018 Influenza, IIV3, injectable 01/31/2013, 1,01/13/2009 Influenza, seasonal, injecta ble, preservative free 12/31/2024,01/23/2024 TD (adult), 2 Lf tetanus tox oid, [...] 20 01/26/2025 9:43 AM EST Oxygen Saturation 98% 12/31/2024 10:15 AM EST Inhaled Oxygen Concentration - - Weight 96 kg (211 lb 9.6 oz) 01/26/2025 9:43 AM EST Height 174 cm (5' 8.5 ) 08/07/2024 9:46 AM EDT Body Mass Index 31.71 08/07/2024 9:46 AM EDT Plan of Treatment Upcoming Encounters Date Type Department Care Team (Late st Contact Info) Description 04/06/2025 10:00 AM EST Office Visit [facility] [address] [place] [address] Name, MD Ko [address] [place] [address] Health Maintenance Due Date Last Done Comments CT Colonography 1978 Colonoscopy 1978 Colorectal Cancer Screening 1978 FIT DNA/Cologuard 1978 FIT 1978 FOBT 1978 Sigmoidoscopy 1978 Alcohol/Substance Use Screening 1990 Family Planning (PISQ) 1993 Hepatitis B Vaccines (1 of 3 - 19+ 3-dose series) 1997 COVID-19 Vaccine ( - season) 2024 03/23/2021, 10/06/2020, 09/15/2020 Depression Monitoring 10/29/2024 04/28/2024, 025 SDOH Screening 03/28/2025 03/28/2024 Disability Screening 08/07/2025 08/07/2024 Tobacco Screening 01/26/2026 01/26/2025 DTaP/Tdap/Td Vaccines (3 - Td or Tdap) 10/20/2027 10/19/2017, 06/13/2006 Zoster Vaccines (1 of 2) 01/10/2028 Lipid Panel 01/19/2030 01/19/2025, 10/13, 04/09/2023, Additional history exists RSV Patients and Patients Aged 60 years or older (1 - 1-dose 75+ series) 2053 HIV Screening Completed 03/12/2024 Hepatitis C Screening Completed 03/12/2024 Influenza Vaccine Completed 12/31/2024, , 03/30/2023, Additional history exists HIB Vaccines Aged Out [...] patient's age to complete this topic Meningococcal B Vaccine Aged Out No l onger eligible based on patient's age to complete this topic Meningococcal Vaccine Aged Out No sydni vivien eligible based on patient's age to complete this topic Pneumococcal Vaccine: Pediatrics (0 to 5 Years) and At-Risk Patients (6 to 49) Years Aged Out No longer eligible based on [...] 01/26/2025 9:59 AM EST Burning with urination CBC WITH AUTO DIFFERENTIAL Routine 01/19/2025 9:13 AM EST Graves disease LIPID PANEL, STANDARD Routine 01/19/2025 9:13 AM EST Hypercholesterolem ia COMPREHENSIVE METABOLIC PANEL Routine 01/19/2025 9:13 AM EST Hypercholesterolem ia T4 (THYROXINE), TOTAL Routine 01/19/2025 9:13 AM EST Hyperthyroidism T3, TOTAL Routine 01/19/2025 9:13 AM EST Hyperthyroidism TSH Routine 01/19/2025 9:13 AM EST Hyperthyroidism HEPATITIS C AB W/REFL TO HCV RNA, QN, PCR Routine 03/12/2024 10:33 AM EST Unexplained weight loss HIV 1/2 ANTIGEN/ANTIBODY, FOURTH GENERATION W/RFL Routine 03/12/2024 10:33 AM EST Unexplained weight loss from Last 3 Months or Most Recently Relevant to Health Maintenance Results * (ABNORMAL) POCT urinalysis dipstick manually resulted (CPT 73591) (01/26/2025 9:59 AM EST) Color, UA Yellow [...] CARE TEST ENTER/ED IT ORDERABLES Final Result * (ABNORMAL) CBC auto differential (01/19/2025 9:13 AM EST) White Blood Count 6.4 4.8 - 10.8 X10*3/uL [facility] Red Blood Count 4.92 4.60 - 5.80 X10*6/uL [facility] Hemoglobin 14.4 14.0 - 18.0 g/dl [facility] Hematocrit 43.3 42.0 - 52.0 % [facility] Mean Corpuscular Volume 88.0 80.0 - 98.0 fL [facility] Mean Corpuscular Hemoglobin 29.3 27.0 - 33.0 pg [facility] Mean Corpuscular HGB Conc 33.3 31.0 - 36.0 g/dl [facility] Red Cell Distribution Width 12.8 11.0 - 16.0 % [facility] Platelet Count 270 160 - 400 X10*3/uL [facility] Mean Platelet Volume 10.3 9.4 - 12.4 fL [facility] Neutrophils Percent Auto 50.2 45 - 73 % [facility] Imm Gran Pct Auto 0.2 0.0 - 0.4 % [facility] Lymphocytes Percent Auto 35.0 20 - 40 % [facility] Monocytes Percent Auto 7.0 2 - 11 % [facility] Eosinophils Percent Auto 6.7(H) 0 - 4 % [facility] Basophils Percent Auto 0.9 0 - 2 % [facility] NRBC Pct Auto 0.0 0.0 - 0.2 /100WBC [facility] Neutrophils Absolute Auto 3.2 2.0 - 8.3 x10*3/uL [facility] Imm Gran Abs Auto 0.01 0.00 - 0.03 X10*3/uL [facility] Lymphocytes Absolute Auto 2.3 1.2 - 4.9 X10*3/uL [facility] Monocytes Absolute Auto 0.5 0.1 - 1.2 X10*3/uL [facility] Eosinophils Absolute Auto 0.4 0.0 - 0.4 X10*3/uL [facility] Basophils Absolute Auto 0.1 0.0 - 0.2 X10*3/uL [facility] NRBC Abs Auto 0.000 0.0 - 0.012 X10*3/uL [facility] Blood Venous blood specimen / Unknown 01/19/2025 9:13 AM EST 01/19/2025 11:17 AM EST Ko Eagle MD LAB BLOOD ORDERABLES Final Resul t Performing Organization Address City/[facility] Co de Phone Number [facility] [address] [place] [address] [phone] * T3, Total (01/19/2025 9:13 AM EST) T3, Total 94 76 - 181 ng/dL [facility] Comment:THIS TEST WAS PERFOR MED AT:[employer] [place] [id number] GOLDBERG MD Blood Venous blood specimen / Unknown 01/19/2025 9:13 AM EST 01/19/2025 11:17 AM EST Lynn Capellan CNP LAB BLOOD ORDERABLES Saadia l Result Performing Organization Address City/State/[facility] Co de Phone Number [facility] [address] [place] [address] [phone] * TSH (01/19/2025 9:13 AM EST) Pathologist [facility] Thyroid Stimulating Hormone 2.86 0.32 - 4.0 uIU/mL [facility] Comment:Note: A sustained TS H level above 2.5 uIU/mL may warrant further investigation. TSH 3rd Generation ([facility]) Blood Venous blood specimen / Unknown 01/19/2025 9:13 AM EST 01/19/2025 11:17 AM EST [facility] LAB BLOOD ORDERABLES Saadia l Result Performing Organization Address [facility] Co de Phone Number [facility] [address] [place] [phone] * T4 (Thyroxine), Total (01/19/2025 9:13 AM EST) Pathologist [facility] T4 Thyroxine 5.9 4.5 - 12.0 ug/dL [facility] Blood Venous blood specimen / Unknown 01/19/2025 9:13 AM EST 01/19/2025 11:17 AM EST [facility] LAB BLOOD ORDERABLES Saadia l Result Performing Organization Address [facility] Co de Phone Number [facility] [address] [place] [phone] * (ABNORMAL) Lipid Panel, Standard (01/19/2025 9:13 AM EST) Triglycerides 92 <150 mg/dL [facility] Comment:Desirable Triglyceri de: less than 150 mg/dLBorderline High Triglyceride 150-199 mg/dLHigh Triglyceride: 200-499 mg/dLVery High Triglyceride: greater than or equal to 5OO mg/dL Cholesterol 201(H) <200 mg/dL [facility] Comment:Desirable Cholestero l: less than 200 mg/dLBorderline High Cholesterol: 200-239 mg/dLHigh Cholesterol: greater than 239 mg/dL LDL Cholesterol Calculated 107(H) <100 mg/dL [facility] Comment:Desirable LDL: less than 100 mg/dLNear Optimal/Above Optimal LDL: 110- 129 mg/dLBorderline High LDL: 130-159 mg/dLHigh LDL: 160-189 mg/dLVery High LDL: greater than or equal to 190 mg/dL HDL Cholesterol 76 >40 mg/dL [facility] Comment:Desirable HDL: great er than 40 mg/dL Note: This HDL assay may give artificially low results in patients with liver disease. Blood Venous blood specimen / Unknown 01/19/2025 9:13 AM EST 01/19/2025 11:17 AM EST us Ko Name LAB BLOOD ORDERABLES Final Resul t [facility] [address] [place] [address] [phone] * (ABNORMAL) Comprehensive Metabolic Panel (01/19/2025 9:13 AM EST) Sodium 139 135 - 145 mmol/L [facility] Potassium 4.3 3.3 - 5.1 mmol/L [facility] Chloride 105 96 - 108 mmol/L [facility] Carbon Dioxide 28 22 - 29 mmol/L [facility] Anion Gap 10(L) 12 - 20 [facility] Urea Nitrogen (BUN) 15 9 - 16 mg/dL [facility] Creatinine, Serum 1.37 0.5 - 1.4 mg/dL [facility] Estimated Glomerular Filt Rate 56 [facility] Comment:Chronic Kidney Disea se: Estimated GFR < 60 mL/min/1.26u3Dfxtda Kidney Disease: Estimated GFR < 15 mL/min/1.73m2 Glucose 116(H) 60 - 115 mg/dL [facility] Calcium 10.2 8.4 - 10.2 mg/dL [facility] Bilirubin, Total 1.2(H) 0.0 - 1.0 mg/dL [facility] Aspartate Amino Transferase 39(H) 5 - 37 U/L [facility] Alanine Aminotransferase 57(H) 0 - 40 U/L [facility] Total Protein 8.1(H) 6.5 - 8.0 g/dL [facility] Albumin Level 5.0 3.5 - 5.0 g/dL [facility] Alkaline Phosphatase 84 39 - 117 U/L [facility] Blood Venous blood specimen / Unknown 01/19/2025 9:13 AM EST 01/19/2025 11:17 AM EST Ko Eagle MD LAB BLOOD ORDERABLES Final Resul t Performing Organization Address [facility]/ZIP Co de Phone Number [facility] [address] [place] [phone] * Hepatitis C Antibody with Reflex to HCV, RNA, Quantitative, Real-Time PCR (03/12/2024 10:33 AM EST) Hepatitis C Antibody Nonreactive Nonreactive [facility] Comment:Antibodies to HCV no t detected; does not exclude early acuteHCV infection. Blood Venous blood specimen / Unknown 03/12/2024 10:33 AM EST 03/12/2024 11:35 AM EST Lynn Capellan [facility] LAB BLOOD ORDERABLES Saadia l Result Performing Organization Address City/[facility]/ZIP Co de Phone Number [facility] [address] [place] [phone] * HIV-1/2 Antigen and Antibodies, Fourth Generation, with Reflexes (03/12/2024 10:33 AM EST) HIV AB/AG Nonreactive Nonreactive [facility] Comment:HIV-1 p24 Ag and/or HIV-1/HIV-2 Ab not detected.A test result that is nonreactive does not exclude thepossibility of exposure to or infection with HIV-1 and/orHIV-2. Nonreactive results in this assay for individualswith prior exposure to HIV-1 and/or HIV-2 may be due toantigen and antibody levels that are below the limit ofdetection of this assay.The [employer] HIV Ag/Ab Combo assay result andsupplemental assay results should be interpreted inconjunction with the patient's clinical presentation,history and other laboratory results. If the results areinconsistent with clinical evidence, additional testing issuggested to confirm the result. Blood Venous blood specimen / Unknown 03/12/2024 10:33 AM EST 03/12/2024 11:35 AM EST [facility] LAB BLOOD ORDERABLES Saadia neal Result [facility] [address] [place] [phone] from Last 3 Months or Most Recently Relevant to Health Maintenance [place] [phone] [facility] STANDARD MEDICARE Care Teams Vp Training Relationship Specialty Start Date End Date Name, MD Ko [address] [place] [phone] PCP - General Family Medicine 04/08/15
[2025-01-27 10:02] LABS: CT PCR Urine NOT DETECTED (Not Detect.); NG PCR Urine DETECTED (Not Detect.)
== END 2025-01-26 10:01 | disposition home or self-care (01) ==
LOC: HO.HHCLNP 10:00
PROVIDERS: Visit Provider Internal Medicine
DX: Z20.2 Contact with and (suspected) exposure to infections with a predominantly sexual mode of transmission (principal); R30.0 Dysuria
CPT/HCPCS: 87086; 87491; 87591

== ENCOUNTER 2025-01-30 10:39 | Outpatient (REF) | payer MEDICARE, MEDICAID, SELFPAY ==
--- OUTSIDE RECORDS SUMMARY | 2025-01-26 10:00 | XMS_ITS | Encounter Summary ---
Author Organization [employer] Address [address] [facility] 7[address] [place] [address] Care Team Providers Care Bankruptcy Law Specialist Name Role Phone Name, Ko CRAWFORD Primary Care Provider [phone] Reason for Visit * Reason Comments burning with urination. Encounter Details Date Type Department Care Team ([facility] st Contact Info) Description 01/26/2025 10:00 AM EST Office Visit [facility] [address] [place] [address] Kwame Sanchez MD [address] [place] [address] Burning with urination (Primary Dx); Essential hypertension Social History Tobacco Use Types Packs/Day Years Used Date Smoking Tobacco: Never Smokeless Tobacco: Never Alcohol Use Standard Drinks/Week Comments Yes 0 (1 standard drink = 0.6 oz pur e alcohol) social Depression Answer Date Recorded Patient Health Questionnaire-9 Score 13 04/28/2024 Patient Health Questionnaire-9 Score 13 04/28/2024 Last PHQ-9: Questionnaire Data Not on file 0 04/28/2024 Housing Stability Answer Date Recorded What is [...] Answer Date Recorded Patient Health Questionnaire-2 Score 3 04/28/2024 Internet Access Answer Date Recorded Internet Access [...] Sign Reading Time Taken Comments Blood Pressure 170/100 01/26/2025 9:43 AM EST Pulse 80 01/26/2025 9:43 AM EST Temperature 36.4 C (97.6 F) 01/26/2025 9:43 AM EST Respiratory Rate 20 01/26/2025 9:43 AM EST Oxygen Saturation - - Inhaled Oxygen Concentration - - Weight 96 kg (211 lb 9.6 oz) 01/26/2025 9:43 AM EST Height - - Body Mass Index 31.71 08/07/2024 9:46 AM EDT documented in this encounter Progress Notes * Kwame Sanchez MD - 01/26/2025 10:00 AM EST SUBJECTIVE Benito Reveles is a 45 y.o. male who presents for burning with urination.. HPI One day h/o burning with urination. No associated fever. No new sexual partner. No discharge of thepenis or sore. Problem List[1] Allergies[2] Medications Ordered Prior to Encounter[3] Review of Systems Constitutional: Negative for appetite change, chills and diaphoresis. Eyes: Negative for pain and redness. Respiratory: Negative for cough and shortness of breath. Gastrointestinal: Negative for abdominal pain, anal bleeding and blood in stool. Genitourinary: Positive for dysuria. Negative for frequency, genital sores, hematuria, penile discharge, scrotal swelling and testicular pain. OBJECTIVE Vitals: 01/26/25 0943 BP: (!) 170/100 Pulse: 80 Resp: 20 Temp: 97.6 ??F (36.4 ??C) TempSrc: Oral Weight: 211 lb 9.6 oz (96 kg) Physical Exam Constitutional: General: He is not in acute distress. Appearance: Normal appearance. He is not ill-appearing, toxic-appearing or diaphoretic. Pulmonary: Effort: Pulmonary effort is normal. Neurological: Mental Status: He is alert. Assessment/Plan Assessment/Plan Diagnoses and all orders for this visit: Burning with urination Comments: Push fluids Labs including STI ordered Safe sexual practices Pt will be called w/ results. Orders: - Culture, Urine, Routine - Chlamydia/Trichomonas/Neisseria gonorrhoeae, PCR, Urine - POCT urinalysis dipstick manually resulted (CPT 58526) Essential hypertension Comments: Uncontrolled Pt needs to be on a DASH diet TO follow up w/ PCP. [1] Patient Active Problem List Diagnosis Migraine with aura Malignant tumor of testis (CMS/HCC) (HCC) Impotence due to erectile dysfunction Hypercholesterolemia Herpes simplex Essential hypertension Dyslipidemia CKD (chronic kidney disease) stage 3, GFR 30-59 ml/min (CMS/HCC) (HCC) Allergic rhinitis Graves disease Hyperthyroidism [2] No Known Allergies [3] Current Outpatient Medications on File Prior to Visit Medication Sig Dispense Refill amLODIPine (Norvasc) 5 MG tablet Take 1 tablet (5 mg) by mouth Once per day. 90 tablet 3 Blood Pressure kit 1 kit Once per day. 1 kit 0 cetirizine (ZyrTEC) 10 MG tablet Take 1 tablet (10 mg) by mouth Once per day. 90 tablet 1 losartan (Cozaar) 50 MG tablet Take 1 tablet (50 mg) by mouth Once per day. 90 tablet 3 methIMAzole (Tapazole) 10 MG tablet Take 1 tablet by mouth See administration instructions. One tabAM rosuvastatin (Crestor) 20 MG tablet Take 1 tablet (20 mg) by mouth Once per day. 90 tablet 3 Viagra 100 MG tablet TAKE 1 TABLET 1 HOUR BEFORE SEXUAL RELATIONS ONCE DAILY NEEDED. 10 tablet 0 No current facility-administered medications on file prior to visit. documented in this encounter Plan of Treatment Upcoming Encounters Date Type Department Care Team (Late st Contact Info) Description 04/06/2025 10:00 AM EST Office Visit [facility] [address] [facility] [place] [address] Name, MD Ko [address] [facility] [place] [address] documented as of this encounter Procedures Procedure Name Priority Date/Time Associated Diagnosis Comments CHLAMYDIA/TRICHOMONA S/NEISSERIA GONORRHOEAE, PCR, URINE Routine 01/26/2025 10:00 AM EST Burning with urination CULTURE, URINE, ROUTINE Routine 01/26/2025 10:00 AM EST Burning with urination POCT URINALYSIS DIPSTICK Routine 01/26/2025 9:59 AM EST Burning with urination documented in this encounter Results * (ABNORMAL) Chlamydia/Trichomonas/Neisseria gonorrhoeae, PCR, Urine (01/26/2025 10:00 AM EST) CT PCR, Urine NOT DETECTED Not Detect. [facility] Comment:A not detected test result does not exclude the possibilityof infection because test results can be affected byimproper specimen collection, concurrent antibiotic therapy,or the number of organisms in the specimen which may bebelow the sensitivity of the test. As with many diagnostictests, results from the Xpert CT/NG assay should beinterpreted in conjunction with other laboratory andclinical data available to the clinician.The Xpert CT/NG assay should not be used for the evaluationof suspected sexual abuse or for other medico-legalindications. Additional testing is recommended in anycircumstance when false positive or false negative resultscould lead to adverse medical, social or psychologicalconsequences. NG PCR, Urine DETECTED(A) Not Detect. [facility] Comment:As with many diagnos tic tests, results from the Xpert CT/NGassay should be interpreted in conjunction with otherlaboratory and clinical data available to the clinician.Xpert CT/NG performance has not been evaluated in patientsless than 14 years of age. The assay should not be used forthe evaluationof suspected sexual abuse or for other medico-legalindications. Additional testing is recommended in anycircumstance when false positive or false negative resultscould lead to adverse medical, social or psychologicalconsequences.These results must be reported by the ordering clinician orclinical facility to the [facility]as required by state law. Urine (Urine, Random) 01/26/2025 10:00 AM EST 01/26/2025 4:07 PM EST us Kwame Sanchez MD LAB URINE ORDERABLES Final Result Performing Organization Address City/[facility]/ZIP Co de Phone Number [facility] [address] [place] [phone] * Culture, Urine, Routine (01/26/2025 10:00 AM EST) Urine Urine specimen obtained by clean catch procedure / Unknown 01/26/2025 10:00 AM EST 01/26/2025 4:07 PM EST Comment:UACC Narrative [facility] - 01/28/2025 11:01 AM EST Urine Culture No growth. Specimen Source: Urine clean catch us Kwame Sanchez MD LAB MICROBIOLOGY - GENERAL ORDERABLES Final Result Performing Organization Address City/[facility] Co de Phone Number [facility] [address] [place] [phone] * (ABNORMAL) POCT urinalysis dipstick manually resulted (CPT 78752) (01/26/2025 9:59 AM EST) Color, UA Yellow Clarity, UA Clear Glucose, UA Negative Bilirubin, UA Negative Ketones, UA Negative Spec Grav, UA 1.025 Blood, UA Positive(A) Negative, None Detected Comment:trace-intact pH, UA 6.0 Protein, UA Negative Urobilinogen, UA 0.2 Leukocytes, UA Moderate(A) Negative, Rare, Trace, 1+ (17), 2+ (35), 3+ (70), Trace (15) Nitrite, UA Negative Negative, None Detected Urine (Urine, Random) 01/26/2025 9:59 AM EST Kwame Sanchez MD POINT OF CARE TEST ENTER/ED IT ORDERABLES Final Result documented in this encounter Visit Diagnoses Diagnosis Burning with urination- Primary Dysuria Essential hypertension Unspecified essential hypertension documented in this encounter Additional Health Concerns Assessment Noted Time PHQ-9 Depression Total Score: 13 025 10:36 AM EDT documented as of this encounter Care Teams Bankruptcy Law Specialist Relationship Specialty Start Date End Date Name, MD Ko [address] [place] [address] PCP - General Family Medicine 04/08/15 documented as of this encounter
--- OUTSIDE RECORDS SUMMARY | 2025-01-27 13:30 | XMS_ITS | Encounter Summary ---
Author Organization [employer] Address [address] [facility] [address] [place] [address] Care Team Providers Care Coating Mixer Tender Name Role Phone Name, Ko CRAWFORD Primary Care Provider [phone] Reason for Visit * Reason Comments Injections Encounter Details Date Type Department Care Team ([facility] st Contact Info) Description 01/27/2025 1:30 PM EST Nurse Only [facility] [address] [place] [address] Geneva Mccarty, KAYLEE Burning with urination Social History Tobacco Use Types Packs/Day Years [...] t he electric, gas, oil or water [employer] threatened to shut off services in your [...] AM EDT documented as of this encounter Progress Notes * Geneva Mccarty RN - 01/27/2025 1:30 PM EST S: Benito Reveles is here for sti treatment with blue team nurses. At last OV recommendations madeon that day per covering provider Please call Mr Benito Reveles to give him an appointment to get treated for both gonorrhea and Clamydia. He will need to get his sexual partner or partners treated as well. The orders are placed. . Pt reports experiencing burning sensation yesterday and hopeful this treatment will alleviate that symptom for them. Patient has no known allergies. O: Ceftriaxone 500 mg vial reconstituted with 1 ml of 1 % xylocaine administered in right upper buttocks and Azithromycin 500 mg two tabs administered orally. Injection was tolerated well. No adversereaction noted. Immunization History Administered Date(s) Administered Influenza injectable quadrivalent IIV4 with preservative 11/03/2015, 12/06/2016, 03/05/2019 Influenza injectable quadrivalent preservative free 02/22/2018, 12/21/2020, 12/12/2021, 03/30/2023 Influenza, IIV3, injectable 01/13/2009, 03/08/2010, 01/31/2013 Influenza, seasonal, injectable, preservative free 01/23/2024, 12/31/2024 Espressi Covid-19 Vaccine 12+ 09/15/2020, 10/06/2020, 03/23/2021 TD (adult), 2 Lf tetanus toxoid, preservative free, adsorbed 10/19/2017 Tdap 06/13/2006 A: Encounter for Injection. P: Benito Reveles received treatment and advised to have their partner get tested and treated as well. Pt advised to call our office if symptoms do not improve in 2 weeks. Pt verbalized understanding and agrees with plan. Geneva Mccarty RN documented in this encounter Plan of Treatment Upcoming Encounters Date Type Department Care Team (Late st Contact Info) Description 04/06/2025 10:00 AM EST Office Visit [facility] [address] [place] [address] Name, MD Ko [address] [place] [address] documented as of this encounter Visit Diagnoses Diagnosis Burning with urination Dysuria documented in this encounter Administered Medications Inactive Administered Medications - up to 3 most recent administrations Medication Order MAR Action Action Date Dose Rate Site azithromycin (Zithromax) tablet 1,000 mg 1,000 mg, Oral, Once, On Sun01/27/25 at 1030, For 1 dose, Suspected Indication (Select all that apply): Sexually Transmitted Infection, Type of Therapy: EmpiricIndications:Gono rrhea Given 01/27/2025 1:45 PM EST 1,000 mg cefTRIAXone (Rocephin) vial 500 mg 500 mg, Intramuscular, Once, On Sun01/27/25 at 1030, For 1 dose, Suspected Indication (Select all that apply): Sexually Transmitted Infection, Type of Therapy: Definitive, No CulturesIndications:Deni orrhea Given 01/27/2025 1:45 PM EST 500 mg Right Upper Buttock documented in this encounter Additional Health Concerns Assessment Noted Time PHQ-9 Depression Total Score: 13 025 10:36 AM EDT documented as of this encounter Care Teams Coating Mixer Tender Relationship Specialty Start Date End Date Name, MD oK [address] [place] [phone] PCP - General Family Medicine 04/08/15 documented as of this encounter
--- OUTSIDE RECORDS SUMMARY | 2025-01-30 12:22 | XMS_ITS | Encounter Summary ---
Author Organization [employer] Address [address] [facility] [address]t [place] [address] Care Team Providers Care Bag Making Machine Tender Name Role Phone Name, Ko CRAWFORD Primary Care Provider [phone] Reason for Visit * Reason Onset Date Comments Hospital Follow-up 03/28/2024 Encounter Details Date Type Department Care Team (Late st Contact Info) Description 03/28/2024 Telephone [facility] [address] [place] [address] Name, MD Ko [address] [place] [address] Hospital Follow-up Social History Tobacco Use Types [...] from pt requesting a HDF appt. Hospital: [facility] Date of admission: 03-24-2024 Discharge date: 03-26-2024 Diagnosed: cardiac arrest symptoms *Send message to [facility] Clinical Care Coordinators (Sami Speaker) documented in this encounter Plan of Treatment Upcoming Encounters Date Type Department Care Team (Late st Contact Info) Description 04/06/2025 10:00 AM EST Office Visit [facility] [address] [place] [phone] Name, MD Ko [address] [place] [address] documented as of this encounter Visit Diagnoses Not on filedocumented in this encounter Additional Health Concerns Assessment Noted Time PHQ-9 Depression Total Score: 0 03/30/19 24 10:46 AM EST documented as of this encounter Care Teams Bag Making Machine Tender Relationship Specialty Start Date End Date Name, MD Ko [address] [place] [phone] PCP - General Family Medicine 04/08/15 documented as of this encounter
--- OUTSIDE RECORDS SUMMARY | 2025-01-30 12:22 | XMS_ITS | Encounter Summary ---
Author Organization [employer] Address [address] [facility] 7t [place] [address] Care Team Providers Care X Ray Technologist Name Role Phone Name, Ko CRAWFORD Primary Care Provider [phone] Encounter Details Date Type Department Care Team [...] 10:00 AM EST Office Visit [facility] MEDICINE [address] [place] [phone] Name, MD Ko [address] [place] [phone] documented as of this encounter Visit Diagnoses Not on filedocumented in this encounter Additional Health Concerns Assessment Noted Time PHQ-9 Depression Total Score: 13 04/28/ 025 10:36 AM EDT documented as of this encounter Care Teams X Ray Technologist Relationship Specialty Start Date End Date Name, MD Ko [address] [place] [phone] PCP - General Family Medicine 04/08/15 documented as of this encounter
--- OUTSIDE RECORDS SUMMARY | 2025-01-30 12:22 | XMS_ITS | Encounter Summary ---
Author Organization [employer] Address [address] [facility] 7t [place] [address] Care Team Providers Care Corporate Legal Assistant Name Role Phone Name, Ko CRAWFORD Primary Care Provider Reason for Visit * Reason Comments Med Refill Encounter Details Date Type Department Care Team ([facility] st Contact Info) Description 01/13/2024 Refill [facility] MEDICINE [address] [place], [place] [phone] Name, MD Ko [address] [place], [place] [phone] Other hyperlipidemia Social History Tobacco Use Types [...] 10:00 AM EST Office Visit [facility] MEDICINE [address] [place] [phone] NameKo MD [address] [place] [address] documented as of this encounter Visit Diagnoses Diagnosis Other hyperlipidemia documented in this encounter Additional Health Concerns Assessment Noted Time PHQ-9 Depression Total Score: 0 03/30/19 24 10:46 AM EST documented as of this encounter Care Teams Corporate Legal Assistant Relationship Specialty Start Date End Date Name, MD Ko [address] [place] [phone] PCP - General Family Medicine 04/08/15 documented as of this encounter
--- OUTSIDE RECORDS SUMMARY | 2025-01-30 12:22 | XMS_ITS | Encounter Summary ---
Author Organization [employer] Address 75 [facility] 7t [place] [address] Care Team Providers Care Advertising Internship Name Role Phone Name, Ko CRAWFORD Primary Care Provider [phone] Encounter Details Date Type Department Care Team ([facility] st Contact Info) Description 01/27/2025 Results Follow-Up [facility] [address] [place] [address] Kwame Sanchez MD [address] [place] [address] Culture, Urine, Routine, Chlamydia/Trichomona s/Neisseria gonorrhoeae, PCR, Urine, POCT urinalysis dipstick manually resulted (CPT 22855) Social History Tobacco Use Types Packs/Day Years [...] encounter Miscellaneous Notes * Telephone Encounter - Danica Arshad RN - 01/29/2025 1:45 PM EST [facility] Pt states is aware and will complete tomorrow * Telephone Encounter - Danica Arshad RN - 01/29/2025 1:45 PM EST ----- Message from Kwame Sanchez MD sent at 01/28/2025 11:20 AM EST ----- Please inform Mr Benito Reveles that his urine culture is negative. He has some additional blood work to do ( HIV and Hep C ) as discussed during our last conversation yesterday. ----- Message ----- From: Kelsey Cristobal MA Sent: 01/26/2025 10:00 AM EST To: Kwame Sanchez MD * Result Encounter Note - Kwame Sanchez MD - 01/28/2025 11:20 AM EST Please inform Mr Benito Reveles that his urine culture is negative. He has some additional blood work to do ( HIV and Hep C ) as discussed during our last conversation yesterday. * Telephone Encounter - Charlene Rasheed RN - 01/27/2025 11:20 AM EST T/C to pt via [employer] #[id number]. Advised of message from Dr Sandoval. Pt reports thathe was already contacted by provider. Reports agreement with plan and agrees to nurse visit this afternoon with [facility] nurse for treatment * Telephone Encounter - Karmen Kothari RN - 01/27/2025 10:59 AM EST ----- Message from Kwame Sanchez MD sent at 01/27/2025 10:21 AM EST ----- Please call Mr Benito Reveles to give him an appointment to get treated for both gonorrhea and Clamydia. He will need to get his sexual partner or partners treated as well. The orders are placed. ----- Message ----- From: Kelsey Cristobal MA Sent: 01/26/2025 10:00 AM EST To: Kwame Sanchez MD * Result Encounter Note - Kwame Sanchez MD - 01/27/2025 10:21 AM EST Please call Mr Benito Reveles to give him an appointment to get treated for both gonorrhea and Clamydia. He will need to get his sexual partner or partners treated as well. The orders are placed. documented in this encounter Plan of Treatment Upcoming Encounters Date Type Department Care Team (Late st Contact Info) Description 04/06/2025 10:00 AM EST Office Visit [facility] [address] [place] [phone] Name, MD Ko [address] [place] [address] documented as of this encounter Visit Diagnoses Not on filedocumented in this encounter Additional Health Concerns Assessment Noted Time PHQ-9 Depression Total Score: 13 04/28/ 025 10:36 AM EDT documented as of this encounter Care Teams Advertising Internship Relationship Specialty Start Date End Date Name, MD Ko [address] [place] [address] PCP - General Family Medicine 04/08/15 documented as of this encounter
--- OUTSIDE RECORDS SUMMARY | 2025-01-30 12:22 | XMS_ITS | Encounter Summary ---
Author Organization [employer] Address 75 [facility] 7t [place] [address] Care Team Providers Care Director Educational Radio Name Role Phone Name, Ko CRAWFORD Primary Care Provider [phone] Encounter Details Date Type Department Care Team (Late st Contact Info) Description 01/29/2025 Telephone [facility] [address] [place] [address] Kwame Sanchez MD [address] [place] [address] Social History Tobacco Use Types Packs/Day Years [...] encounter Miscellaneous Notes * Telephone Encounter - Kelsey Cristobal MA - 01/29/2025 10:47 AM EST Spoke to patient inform Mr Benito Reveles that his urine culture is negative. He has some additional blood work to do ( HIV and Hep C ) as discussed during our last conversation yesterday. documented in this encounter Plan of Treatment Upcoming Encounters Date Type Department Care Team (Late st Contact Info) Description 04/06/2025 10:00 AM EST Office Visit [facility] MEDICINE [address] [place] [phone] Name, MD Ko [address] [place] [address] documented as of this encounter Visit Diagnoses Not on filedocumented in this encounter Additional Health Concerns Assessment Noted Time PHQ-9 Depression Total Score: 13 025 10:36 AM EDT documented as of this encounter Care Teams Director Educational Radio Relationship Specialty Start Date End Date Name, MD Ko [address] [place] [phone] PCP - General Family Medicine 04/08/15 documented as of this encounter
--- OUTSIDE RECORDS SUMMARY | 2025-01-30 12:22 | XMS_ITS | Clinical Summary ---
Author Organization [employer] Address [address] [place] [address] 7t [place] [address] Care Team Providers Care Consultant Dietitian Name Role Phone Name, Ko CRAWFORD Primary Care Provider [phone] Allergies No known active allergies Medications methIMAzole (Tapazole) 10 MG tabletIndicatio ns:Graves' Disease,Hyperth yroidism,Thyrot oxicosis Take 1 tablet by mouth See administration instructions. One tab AM 03/26/19 25 Active Blood Pressure kitIndications: Hospital discharge follow-up 1 kit Once per day. 1 kit 04/11/19 25 Active amLODIPine (Norvasc) 5 MG tablet Take 1 tablet (5 mg) by mouth Once per day. 90 tablet 3 08/08/19 25 026 Active losartan (Cozaar) 50 MG tablet Take 1 tablet (50 mg) by mouth Once per day. 90 tablet 3 08/08/19 25 026 Active rosuvastatin (Crestor) 20 MG tablet Take 1 tablet (20 mg) by mouth Once per day. 90 tablet 3 08/08/19 25 026 Active cetirizine (ZyrTEC) 10 MG tablet Take 1 tablet (10 mg) by mouth Once per day. 90 tablet 1 12/31/2024 11:44 AM EST 01/01/20 25 Active Viagra 100 MG tabletIndicatio ns:Erectile dysfunction, unspecified erectile dysfunction type TAKE 1 TABLET 1 HOUR BEFORE SEXUAL RELATIONS ONCE DAILY NEEDED. 10 tablet 12/31/2024 11:44 AM EST 01/01/20 25 Active Hospital, Clinic, or Other Facility Administered Medication Ordered Dose Route Frequency Start Date End Date Status cefTRIAXone (Rocephin) vial 500 mgIndications:Gonorrhea 500 mg IM Once 01/27/2025 01/28/20 25 Ended azithromycin (Zithromax) tablet 1,000 mgIndications:Gonorrhea 1000 mg PO Once 01/27/2025 01/27/2025 E nded Active Problems Problem Noted Date Diagnosed Date Hyperthyroidism 04/28/2024 Graves disease 04/11/2024 Assessment & Plan (06/24/2024 11:08 AM EDT): -patient is stable and reports being symptom free -denies side effects of the new med -he is connected with Endocrine and says he's recieved an appointment Dyslipidemia 05/22/2018 CKD (chronic kidney disease) stage 3, GFR 30-59 ml/min ([facility]) 01/03/2017 Impotence due to erectile dysfunction 12/06/2016 Essential hypertension 05/01/2016 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 Will obtain bloodwork-see orders Will obtain Chest XR to r/o malignancy, Tb Pt will f/u with PCP in april Will call pt in for sooner f/u if labs/imaging abnormal Encounters Date Type Department Care Team Description 01/29/2025 Telephone [facility] [address] [place] [phone] Kwame Sanchez MD 01/27/2025 1:30 PM EST Nurse Only [facility] MED[facility] [address] [place] [phone] Geneva Mccarty RN Burning with urination 01/27/2025 Travel 01/27/2025 Orders Only [facility] [address] [place] [address] Kwame Sanchez MD Gonorrhea (Primary Dx) 01/27/2025 Results Follow-Up [facility] [address] [place] [address] Kwame Sanchez MD Culture, Urine, Routine, Chlamydia/Trichomonas /Neisseria gonorrhoeae, PCR, Urine, POCT urinalysis dipstick manually resulted (CPT 00228) 01/26/2025 10:00 AM EST Office Visit [facility] [address] [place] [address] Kwame Sanchez MD Burning with urination (Primary Dx); Essential hypertension 01/26/2025 Travel 01/20/2025 Results Follow-Up [facility] [address] [place] [address] Lynn Capellan CNP TSH, T3, Total, T4 (Thyroxine), Total 12/31/2024 10:30 AM EST Office Visit [facility] MED[facility] [address] [place] [phone] Ko Eagle MD Essential hypertension (Primary Dx); Graves disease; Hypercholesterolemia; Allergic rhinitis, unspecified seasonality, unspecified trigger; Erectile dysfunction, unspecified erectile dysfunction type; Healthcare maintenance; Encounter for immunization 12/31/2024 Travel 12/30/2024 Telephone [facility] [address] [place] [address] Otilia Briscoe MA chart prep from Last 3 Months Immunizations Immunization Administration [...] Description 04/06/2025 10:00 AM EST Office Visit [facility] [address] [place] [address] Name, MD Ko [address] [place] [address] Health Maintenance Due Date Last Done Comments CT Colonography 1978 Colonoscopy 1978 Colorectal Cancer Screening 1978 FIT DNA/Cologuard 1978 FIT 1978 FOBT 1978 Sigmoidoscopy 1978 Alcohol/Substance Use Screening 1990 Family Planning (PISQ) 1993 Hepatitis B Vaccines (1 of 3 - 19+ 3-dose series) 1997 COVID-19 Vaccine ( season) 2024 03/23/2021, 10/06/2020, 09/15/2020 Depression Monitoring [...] Procedure Name Priority Date/Time Associated Diagnosis Comments CHLAMYDIA/TRICHOMONAS/ NEISSERIA GONORRHOEAE, PCR, URINE Routine 01/26/2025 10:00 AM [...] Relevant to Health Maintenance Results * (ABNORMAL) Chlamydia/Trichomonas/Neisseria gonorrhoeae, PCR, Urine (01/26/2025 10:00 AM EST) CT PCR, Urine NOT DETECTED Not Detect. [facility] Comment:A not detected test result [...] psychologicalconsequences. NG PCR, Urine DETECTED(A) Not Detect. [facility] Comment:As with many diagnos tic [...] the ordering clinician orclinical [facility] required by [facility]. Urine (Urine, Random) 01/26/2025 10:00 AM EST 01/26/2025 4:07 PM EST Kwame Sanchez MD LAB URINE ORDERABLES Final Result Performing Organization Address [facility]/ZIP Co de Phone Number [facility] [address] [place] [phone] * Culture, Urine, Routine (01/26/2025 10:00 AM EST) Urine Urine specimen obtained by clean catch procedure / Unknown 01/26/2025 10:00 AM EST 01/26/2025 4:07 PM EST Comment:UACC Narrative [facility] - 01/28/2025 11:01 AM EST Urine Culture No growth. Specimen Source: Urine clean catch Kwame Sanchez MD LAB MICROBIOLOGY - GENERAL ORDERABLES Final Result Performing Organization Address City/[facility] Co de Phone Number [facility] [address] [place] [phone] * (ABNORMAL) POCT urinalysis dipstick manually resulted (CPT 29500) (01/26/2025 9:59 AM EST) Color, UA Yellow [...] Blood Count 6.4 4.8 - 10.8 X10*3/uL [facility] Red Blood Count 4.92 4.60 - 5.80 X10*6/uL [facility] Hemoglobin 14.4 14.0 - 18.0 g/dl [facility] Hematocrit 43.3 42.0 - 52.0 % [facility] Mean Corpuscular Volume 88.0 80.0 - 98.0 fL [facility] Mean Corpuscular Hemoglobin 29.3 27.0 - 33.0 pg [facility] Mean Corpuscular HGB Conc 33.3 31.0 - 36.0 g/dl [facility] Red Cell Distribution Width 12.8 11.0 - 16.0 % [facility] Platelet Count 270 160 - 400 X10*3/uL [facility] Mean Platelet Volume 10.3 9.4 - 12.4 fL [facility] Neutrophils Percent Auto 50.2 45 - 73 % [facility] Imm Gran Pct Auto 0.2 0.0 - 0.4 % [facility] Lymphocytes Percent Auto 35.0 20 - 40 % [facility] Monocytes Percent Auto 7.0 2 - 11 % [facility] Eosinophils Percent Auto 6.7(H) 0 - 4 % [facility] Basophils Percent Auto 0.9 0 - 2 % [facility] NRBC Pct Auto 0.0 0.0 - 0.2 /100WBC [facility] Neutrophils Absolute Auto 3.2 2.0 - 8.3 x10*3/uL [facility] Imm Gran Abs Auto 0.01 0.00 - 0.03 X10*3/uL [facility] Lymphocytes Absolute Auto 2.3 1.2 - 4.9 X10*3/uL [facility] Monocytes Absolute Auto 0.5 0.1 - 1.2 X10*3/uL [facility] Eosinophils Absolute Auto 0.4 0.0 - 0.4 X10*3/uL [facility] Basophils Absolute Auto 0.1 0.0 - 0.2 X10*3/uL [facility] NRBC Abs Auto 0.000 0.0 - 0.012 X10*3/uL [facility] Blood Venous blood specimen / Unknown 01/19/2025 9:13 AM EST 01/19/2025 11:17 AM EST Ko Eagle MD LAB BLOOD ORDERABLES Final Resul t Performing Organization Address [facility] de Phone Number [facility] [address] [place] [phone] * T3, Total (01/19/2025 9:13 AM EST) Pathologist [facility] T3, Total 94 76 - 181 ng/dL [facility] Comment:THIS TEST WAS PERFOR MED AT:[facility] [address] [phone] GOLDBERG MD Blood Venous blood specimen / Unknown 01/19/2025 9:13 AM EST 01/19/2025 11:17 AM EST Result [facility] LAB BLOOD ORDERABLES Saadia l Result Performing Organization Address [facility] Number [facility] [address] [place] [phone] * TSH (01/19/2025 9:13 AM EST) [facility] Thyroid Stimulating Hormone 2.86 0.32 - 4.0 uIU/mL [facility] Comment:Note: A sustained TS H level above 2.5 uIU/mL may warrant further investigation. TSH 3rd Generation ([facility]) Blood Venous blood specimen / Unknown 01/19/2025 9:13 AM EST 01/19/2025 11:17 AM EST [facility] LAB BLOOD ORDERABLES Saadia l Result Performing Organization Address [facility] de Phone Number [facility] [address] [place] [phone] * T4 (Thyroxine), Total (01/19/2025 9:13 AM EST) Pathologist [facility] T4 Thyroxine 5.9 4.5 - 12.0 ug/dL [facility] Blood Venous blood specimen / Unknown 01/19/2025 9:13 AM EST 01/19/2025 11:17 AM EST Lynn Capellan [facility] LAB BLOOD ORDERABLES Saadia l Result [facility] [address] [place] [phone] * (ABNORMAL) Lipid Panel, Standard (01/19/2025 9:13 AM EST) [facility] Triglycerides 92 <150 mg/dL [facility] Comment:Desirable Triglyceri de: less than 150 mg/dLBorderline High Triglyceride 150-199 mg/dLHigh Triglyceride: 200-499 mg/dLVery High Triglyceride: greater than or equal to 5OO mg/dL Cholesterol 201(H) <200 mg/dL [facility] Comment:Desirable Cholestero l: less than 200 mg/dLBorderline High Cholesterol: 200-239 mg/dLHigh Cholesterol: greater than 239 mg/dL LDL Cholesterol Calculated 107(H) <100 mg/dL [facility] Comment:Desirable LDL: less than 100 mg/dLNear Optimal/Above Optimal LDL: 110- 129 mg/dLBorderline High LDL: 130-159 mg/dLHigh LDL: 160-189 mg/dLVery High LDL: greater than or equal to 190 mg/dL HDL Cholesterol 76 >40 mg/dL [facility] Comment:Desirable HDL: great er than 40 mg/dL Note: This HDL assay may give artificially low results in patients with liver disease. Blood Venous blood specimen / Unknown 01/19/2025 9:13 AM EST 01/19/2025 11:17 AM EST Ko Eagle MD LAB BLOOD ORDERABLES Final Resul t Performing Organization Address City/[facility]/ZIP Co de Phone Number [facility] [address] [place] [phone] * (ABNORMAL) Comprehensive Metabolic Panel (01/19/2025 9:13 AM EST) Sodium 139 135 - 145 mmol/L [facility] Potassium 4.3 3.3 - 5.1 mmol/L [facility] Chloride 105 96 - 108 mmol/L [facility] Carbon Dioxide 28 22 - 29 mmol/L [facility] Anion Gap 10(L) 12 - 20 [facility] Urea Nitrogen (BUN) 15 9 - 16 mg/dL [facility] Creatinine, Serum 1.37 0.5 - 1.4 mg/dL [facility] Estimated Glomerular Filt Rate 56 [facility] Comment:Chronic Kidney Disea se: Estimated GFR < 60 mL/min/1.52e4Bglgrr Kidney Disease: Estimated GFR < 15 mL/min/1.73m2 Glucose 116(H) 60 - 115 mg/dL [facility] Calcium 10.2 8.4 - 10.2 mg/dL [facility] Bilirubin, Total 1.2(H) 0.0 - 1.0 mg/dL [facility] Aspartate Amino Transferase 39(H) 5 - 37 U/L [facility] Alanine Aminotransferase 57(H) 0 - 40 U/L [facility] Total Protein 8.1(H) 6.5 - 8.0 g/dL [facility] Albumin Level 5.0 3.5 - 5.0 g/dL [facility] Alkaline Phosphatase 84 39 - 117 U/L [facility] Blood Venous blood specimen / Unknown 01/19/2025 9:13 AM EST 01/19/2025 11:17 AM EST us Ko Eagle MD LAB BLOOD ORDERABLES Final Resul t Performing Organization Address [facility]/ZIP Co de Phone Number [facility] [address] [place] [address] [phone] * Hepatitis C Antibody with Reflex to HCV, RNA, Quantitative, Real-Time PCR (03/12/2024 10:33 AM EST) Hepatitis C Antibody Nonreactive Nonreactive [facility] Comment:Antibodies to HCV no t detected; does not exclude early acuteHCV infection. Blood Venous blood specimen / Unknown 03/12/2024 10:33 AM EST 03/12/2024 11:35 AM EST [facility] LAB BLOOD ORDERABLES Saadia l Result Performing Organization Address [facility]/ZIP Co de Phone Number [facility] [address] [place] [phone] * HIV-1/2 Antigen and Antibodies, Fourth Generation, with Reflexes (03/12/2024 10:33 AM EST) HIV AB/AG Nonreactive Nonreactive [facility] Comment:HIV-1 p24 Ag and/or HIV-1/HIV-2 Ab not detected.A test result that is nonreactive does not exclude thepossibility of exposure to or infection with HIV-1 and/orHIV-2. Nonreactive results in this assay for individualswith prior exposure to HIV-1 and/or HIV-2 may be due toantigen and antibody levels that are below the limit ofdetection of this assay.The Spockly HIV Ag/Ab Combo assay result andsupplemental assay results should be interpreted inconjunction with the patient's clinical presentation,history and other laboratory results. If the results areinconsistent with clinical evidence, additional testing issuggested to confirm the result. Blood Venous blood specimen / Unknown 03/12/2024 10:33 AM EST 03/12/2024 11:35 AM EST [facility] LAB BLOOD ORDERABLES Saadia l Result Performing Organization Address City/[facility]/ZIP Co de Phone Number [facility] [address] [place] [phone] from Last 3 Months or Most Recently Relevant to Health Maintenance [place] [address] [place] [address] [employer] Care Teams Consultant Dietitian Relationship Specialty Start Date End Date Name, MD Ko [address] [place] [phone] PCP - General Family Medicine 04/08/15
--- OUTSIDE RECORDS SUMMARY | 2025-01-30 12:22 | XMS_ITS | Encounter Summary ---
Author Organization [employer] Address [address] [facility] 7[address] [place] [address] Care Team Providers Care Pediatric Licensed Practical Nurse Name Role Phone Name, Ko CRAWFORD Primary Care Provider [phone] Encounter Details Date Type Department Care Team ([facility] st Contact Info) Description 01/27/2025 Orders Only [facility] [address] [place], [place] [phone] Kwame Sanchez MD [address] [place] [address] Gonorrhea (Primary Dx) Social History Tobacco Use Types [...] 10:00 AM EST Office Visit [facility] [address] [place] [address] Name, MD Ko [address] [place] [phone] Scheduled Orders Name Type Priority Associated Diagnoses Orde r Schedule HIV-1/2 Antigen and Antibodies, Fourth Generation, with Reflexes Lab Routine Gonorrhea Expected: 01/28/2025 (Approximate), Expires: 01/28/2026 Hepatitis C Antibody with Reflex to HCV, RNA, Quantitative, Real-Time PCR Lab Routine Gonorrhea Expected: 01/28/2025, Expires: 01/28/2026 documented as of this encounter Visit Diagnoses Diagnosis Gonorrhea- Primary Gonococcal infection (acute) of lower genitourinary tract documented in this encounter Additional Health Concerns Assessment Noted Time PHQ-9 Depression Total Score: 13 025 10:36 AM EDT documented as of this encounter Care Teams Pediatric Licensed Practical Nurse Relationship Specialty Start Date End Date Name, MD Ko [address] [place] [address] PCP - General Family Medicine 04/08/15 documented as of this encounter
--- OUTSIDE RECORDS SUMMARY | 2025-01-30 12:22 | XMS_ITS | Encounter Summary ---
Author Organization [employer] Address [address] [facility] [address] [place] [address] Care Team Providers Care Shotweld Operator Name Role Phone Name, Ko CRAWFORD Primary Care Provider [phone] Encounter Details Date Type Department Care Team (Latest Contact Info) Description 01/27/2025 Travel Social History Tobacco Use Types Packs/Day [...] 04/06/2025 10:00 AM EST Office Visit [facility] [address] [place] [phone] Name, MD Ko [address] [place] [id number] documented as of this encounter Visit Diagnoses Not on filedocumented in this encounter Additional Health Concerns Assessment Noted Time PHQ-9 Depression Total Score: 13 04/28/ 025 10:36 AM EDT documented as of this encounter Care Teams Shotweld Operator Relationship Specialty Start Date End Date Name, MD Ko [address] [place] [id number] PCP - General Family Medicine 04/08/15 documented as of this encounter
--- OUTSIDE RECORDS SUMMARY | 2025-01-30 12:22 | XMS_ITS | Encounter Summary ---
Author Organization [employer] Address [address] [facility] [address] [place] [address] Care Team Providers Care Futures Trader Name Role Phone Name, Ko CRAWFORD Primary Care Provider [phone] Encounter Details Date Type Department Care Team ([facility] st Contact Info) Description 01/20/2025 Results Follow-Up [facility] PEDS [address] [place], [place] [phone] Lynn Capellan, FLORIST DESIGNER [address] [place], [place] [phone] TSH, T3, Total, T4 (Thyroxine), Total Social [...] Description 04/06/2025 10:00 AM EST Office Visit [facility] [address] [place] [address] Name, MD Ko [address] [place] [address] documented as of this encounter Visit Diagnoses Not on filedocumented in this encounter Additional Health Concerns Assessment Noted Time PHQ-9 Depression Total Score: 13 025 10:36 AM EDT documented as of this encounter Care Teams Futures Trader Relationship Specialty Start Date End Date Name, MD Ko [address] [place] [address] PCP - General Family Medicine 04/08/15 documented as of this encounter
[2025-02-02 04:03] LABS: HIV Num 1 0.08 S/CO (0.00-0.99); ~HepC Num1 0.14 S/CO (0.00-0.79); ~Hepatitis C Antibody Nonreactive (Nonreactive)
== END 2025-01-30 10:40 | disposition home or self-care (01) ==
LOC: HO.HHCL 10:39
PROVIDERS: PCP Internal Medicine Geriatric Medicine; Visit Provider Internal Medicine
DX: A54.9 Gonococcal infection, unspecified (principal); Z11.4 Encounter for screening for human immunodeficiency virus [HIV]; Z11.59 Encounter for screening for other viral diseases
CPT/HCPCS: 36415; 86803; 87389